=== PATIENT | female | born 1940 | race American Indian/Alaskan Native ===

== ENCOUNTER 2019-09-01 11:53 | Emergency (ER) | payer MEDICARE, OTHER ==
[~2019-09-01] VITALS: Ht 162.6 cm; Wt 72.6 kg
[~2019-09-01 11:53] MED LIST: ALPR.25 PO; AMLO10 PO; AMLO5; ASPI325; ASPI81CH PO; ATEN100; ATEN25 PO; ATEN50 PO; DOXY100 PO; ENOX40I SC; ESCI10 PO; FURO40 PO; HYDACE5 PO; Hytrin2 MG PO; IBUP600 PO; LORA1 PO; LOSA25 PO; LOSHYD100 PO; OMEP20ER; OXCA300; POTCHL20ER PO; PROACE100 PO; Percocet 5-3251 EACH PO; SIMV20 PO; VALS80; Zocor20 MG PO
[2019-09-01 13:12] LABS: BASOPHILS ABSOLUTE AUTO 0.05 K/mm3 (0.00-0.23); BASOPHILS PERCENT AUTO 0 % (0-2); EOSINOPHILS ABSOLUTE AUTO 0.02 K/mm3 (0.00-0.68); EOSINOPHILS PERCENT AUTO 0 % (0-6); Hematocrit 47.4 % (33.0-51.0); Hemoglobin 14.8 g/dL (11.5-16.0); IMMATURE GRAN ABSOLUTE AUTO 0.04 K/mm3 (0.00-0.10); IMMATURE GRAN PERCENT AUTO 0 % (0-1); LYMPHOCYTES ABSOLUTE AUTO 1.63 K/mm3 (0.84-5.20); LYMPHOCYTES PERCENT AUTO 15 % (21-46); MONOCYTES ABSOLUTE AUTO 1.34 K/mm3 (0.16-1.47); MONOCYTES PERCENT AUTO 12 % (4-13); Mean Corpuscular HGB 28.5 pg (26.0-34.0); Mean Corpuscular HGB Conc 31.2 g/dL (31.5-36.5); Mean Corpuscular Volume 91 fL (80-100); Mean Platelet Volume 10.6 fL (9.1-12.4); NEUTROPHILS ABSOLUTE AUTO 8.18 K/mm3 (1.96-9.15); NEUTROPHILS PERCENT AUTO 73 % (41-73); Platelet Count 345 K/mm3 (150-400); RDW Coefficient Variation 16.3 % (11.7-14.2); RDW Standard Deviation 53.9 fL (35.1-46.3); White Blood Cell Count 11.26 K/mm3 (4.00-11.30)
[2019-09-01 13:30] LABS: International Normalized Ratio 1.03; Prothrombin Time Results 10.9 Sec (9.7-11.5)
[2019-09-01 13:32] LABS: Bun/Creatinine Ratio 15.5 (12.0-20.0); Calcium, Blood 9.6 mg/dL (8.5-10.1); Creatinine, Blood 1.03 mg/dL (0.40-1.00); Potassium, Blood 4.6 mmol/L (3.5-5.5); Troponin I 0.083 ng/mL (0.000-0.040)
[2019-09-01 13:45] LABS: Creatine Kinase MB 3.4 ng/mL (0.0-3.6); Creatine Kinase MB Index 1.5 (0.0-4.0)
[2019-09-01 15:03] LABS: Source, Urine Catheter
[2019-09-01 15:06] LABS: Blood, Urine 2+ (Neg); Glucose Qualitative, Urine Neg (Neg); Ketones, Urine 2+ (Neg); Leukocyte Esterase, Urine 1+ (Neg); Nitrite, Urine Neg (Neg); Protein, Urine 3+ (Neg); Specific Gravity, Urine 1.025 (1.003-1.022); Urobilinogen, Urine 2+ (Normal)
[2019-09-01 15:28] LABS: Bilirubin, Urine 1+ (Neg)
[2019-09-01] MEDS ORDERED: Hydrocodone-Ap1 EA26 PO (15:29)
[2019-09-01 15:32] LABS: Appearance, Urine Hazy (Clear); Color, Urine Amber (P-Yellow)
[2019-09-01 15:37] LABS: Bacteria Many /hpf; Mucus Light (0-Heavy); Squamous Epithelial Cells Few /hpf (Few)
[2019-09-01 15:38] LABS: Granular Casts 0-2 /lpf (0)
[2019-09-01] MEDS ORDERED: Bactrim Ds Tab1 EACH PO (16:17)
== END 2019-09-01 16:41 | disposition home or self-care (01) ==
LOC: ER 11:53
PROVIDERS: Emergency Medicine
DX: N39.0 Urinary tract infection, site not specified (principal); F42.4 Excoriation (skin-picking) disorder; I47.1 Supraventricular tachycardia; R41.82 Altered mental status, unspecified; I10 Essential (primary) hypertension; E11.9 Type 2 diabetes mellitus without complications; E78.5 Hyperlipidemia, unspecified; F32.9 Major depressive disorder, single episode, unspecified; F41.0 Panic disorder [episodic paroxysmal anxiety]; Z88.8 Allergy status to other drugs, medicaments and biological substances; Z79.899 Other long term (current) drug therapy; Z79.82 Long term (current) use of aspirin
CPT/HCPCS: 71046; 72100; 72220; 73030; 80048; 81001; 82550; 82553; 84484; 85025; 85610; 85730; 87086; 93005; 93010; 96361; 96365; 96375; 99284-25; J0696; J2405; J3010; J7030; P9612

== ENCOUNTER 2019-10-25 14:13 | Emergency (ER) | payer MEDICARE, OTHER ==
[~2019-10-25] VITALS: Ht 157.5 cm; Wt 68.0 kg
[~2019-10-25 14:13] MED LIST changes: +Bactrim Ds Tab1 EACH PO; +Hydrocodone-Ap1 EA26 PO
[2019-10-25] MEDS ORDERED: TYLECOD3 PO (16:16)
== END 2019-10-25 18:28 | disposition home or self-care (01) ==
LOC: ER 14:13
DX: S80.212A Abrasion, left knee, initial encounter (principal); T14.8XXA Other injury of unspecified body region, initial encounter; M25.552 Pain in left hip; M54.5 Low back pain; M25.512 Pain in left shoulder; I10 Essential (primary) hypertension; M19.90 Unspecified osteoarthritis, unspecified site; Z88.8 Allergy status to other drugs, medicaments and biological substances; Z79.82 Long term (current) use of aspirin; Z79.899 Other long term (current) drug therapy; E11.9 Type 2 diabetes mellitus without complications; F41.0 Panic disorder [episodic paroxysmal anxiety]; F32.9 Major depressive disorder, single episode, unspecified; W19.XXXA Unspecified fall, initial encounter
CPT/HCPCS: 72100; 72170; 73030; 73562-LT; 93005; 93010; 99284-25

== ENCOUNTER 2019-11-18 16:22 | Emergency (ER) | payer MEDICARE, OTHER ==
[~2019-11-18] VITALS: Ht 157.5 cm; Wt 68.0 kg
[~2019-11-18 16:22] MED LIST changes: +TYLECOD3 PO
[2019-11-18 19:15] LABS: BASOPHILS ABSOLUTE AUTO 0.04 K/mm3 (0.00-0.23); BASOPHILS PERCENT AUTO 0 % (0-2); EOSINOPHILS ABSOLUTE AUTO 0.04 K/mm3 (0.00-0.68); EOSINOPHILS PERCENT AUTO 0 % (0-6); Hematocrit 44.1 % (33.0-51.0); Hemoglobin 14.6 g/dL (11.5-16.0); IMMATURE GRAN ABSOLUTE AUTO 0.04 K/mm3 (0.00-0.10); IMMATURE GRAN PERCENT AUTO 0 % (0-1); LYMPHOCYTES ABSOLUTE AUTO 1.45 K/mm3 (0.84-5.20); LYMPHOCYTES PERCENT AUTO 14 % (21-46); MONOCYTES ABSOLUTE AUTO 1.26 K/mm3 (0.16-1.47); MONOCYTES PERCENT AUTO 12 % (4-13); Mean Corpuscular HGB 29.5 pg (26.0-34.0); Mean Corpuscular HGB Conc 33.1 g/dL (31.5-36.5); Mean Corpuscular Volume 89 fL (80-100); Mean Platelet Volume 9.5 fL (9.1-12.4); NEUTROPHILS ABSOLUTE AUTO 7.57 K/mm3 (1.96-9.15); NEUTROPHILS PERCENT AUTO 73 % (41-73); Platelet Count 485 K/mm3 (150-400); RDW Coefficient Variation 16.3 % (11.7-14.2); RDW Standard Deviation 52.6 fL (35.1-46.3); Red Blood Cell Count 4.95 M/mm3 (3.80-5.20)
[2019-11-18 19:33] LABS: Alanine Aminotransfer (ALT/SGP 18 U/L (12-78); Albumin, Blood 2.9 g/dL (3.4-5.0); Albumin/Globulin Ratio 0.7 (0.8-1.8); Alk Phos 70 U/L (50-136); Anion Gap 6 mmol/L (6-16); Aspartate Aminotrans (AST/SGOT 20 U/L (12-37); Bilirubin, Total 0.3 mg/dL (0.1-1.0); Blood Urea Nitrogen 8 mg/dL (8-24); Bun/Creatinine Ratio 14.7 (12.0-20.0); CO2, Blood 34 mmol/L (21-32); Calcium, Blood 9.7 mg/dL (8.5-10.1); Chloride, Blood 102 mmol/L (98-108); Creatinine, Blood 0.54 mg/dL (0.40-1.00); Glomerular Filtration Rate >60 (60-); Glucose, Blood 114 mg/dL (70-99); Potassium, Blood 3.1 mmol/L (3.5-5.5); Sodium, Blood 142 mmol/L (136-145); Total Protein, Blood 6.9 g/dL (6.4-8.2)
== END 2019-11-18 21:02 | disposition home or self-care (01) ==
LOC: ER 16:22
PROVIDERS: Emergency Medicine
DX: R19.7 Diarrhea, unspecified (principal); E87.6 Hypokalemia; I10 Essential (primary) hypertension; E11.9 Type 2 diabetes mellitus without complications; E78.5 Hyperlipidemia, unspecified; F41.0 Panic disorder [episodic paroxysmal anxiety]; F32.9 Major depressive disorder, single episode, unspecified; Z88.8 Allergy status to other drugs, medicaments and biological substances
CPT/HCPCS: 80053; 85025; 96361; 96374; 99284-25; A9270-GY; J2405; J7030

== ENCOUNTER 2019-11-20 17:01 | Emergency (ER) | payer MEDICARE, OTHER ==
[~2019-11-20] VITALS: Ht 157.5 cm; Wt 68.0 kg
[2019-11-20 18:40] LABS: BASOPHILS ABSOLUTE AUTO 0.06 K/mm3 (0.00-0.23); BASOPHILS PERCENT AUTO 0 % (0-2); EOSINOPHILS ABSOLUTE AUTO 0.02 K/mm3 (0.00-0.68); EOSINOPHILS PERCENT AUTO 0 % (0-6); Hemoglobin 14.6 g/dL (11.5-16.0); IMMATURE GRAN ABSOLUTE AUTO 0.06 K/mm3 (0.00-0.10); IMMATURE GRAN PERCENT AUTO 0 % (0-1); LYMPHOCYTES ABSOLUTE AUTO 1.62 K/mm3 (0.84-5.20); LYMPHOCYTES PERCENT AUTO 11 % (21-46); MONOCYTES ABSOLUTE AUTO 1.26 K/mm3 (0.16-1.47); MONOCYTES PERCENT AUTO 9 % (4-13); Mean Corpuscular HGB 29.7 pg (26.0-34.0); Mean Corpuscular HGB Conc 33.2 g/dL (31.5-36.5); Mean Corpuscular Volume 90 fL (80-100); Mean Platelet Volume 9.8 fL (9.1-12.4); NEUTROPHILS ABSOLUTE AUTO 11.14 K/mm3 (1.96-9.15); NEUTROPHILS PERCENT AUTO 79 % (41-73); Platelet Count 503 K/mm3 (150-400); RDW Coefficient Variation 16.4 % (11.7-14.2); RDW Standard Deviation 53.9 fL (35.1-46.3); Red Blood Cell Count 4.91 M/mm3 (3.80-5.20); White Blood Cell Count 14.16 K/mm3 (4.00-11.30)
[2019-11-20 19:15] LABS: Troponin I 0.026 ng/mL (0.000-0.040)
[2019-11-20 19:16] LABS: Albumin, Blood 3.1 g/dL (3.4-5.0); Albumin/Globulin Ratio 0.8 (0.8-1.8); Alk Phos 75 U/L (50-136); Anion Gap 6 mmol/L (6-16); Aspartate Aminotrans (AST/SGOT 26 U/L (12-37); Bilirubin, Total 0.4 mg/dL (0.1-1.0); Blood Urea Nitrogen 9 mg/dL (8-24); Bun/Creatinine Ratio 13.8 (12.0-20.0); CO2, Blood 36 mmol/L (21-32); Calcium, Blood 9.8 mg/dL (8.5-10.1); Chloride, Blood 99 mmol/L (98-108); Creatinine, Blood 0.65 mg/dL (0.40-1.00); Globulin, Blood 3.9 g/dL (2.2-4.0); Glomerular Filtration Rate >60 (60-); Glucose, Blood 112 mg/dL (70-99); Potassium, Blood 2.7 mmol/L (3.5-5.5); Sodium, Blood 141 mmol/L (136-145)
[2019-11-20 19:31] LABS: Alanine Aminotransfer (ALT/SGP 23 U/L (12-78)
== END 2019-11-20 21:09 | disposition home or self-care (01) ==
LOC: ER 17:01
PROVIDERS: Emergency Medicine
DX: F41.9 Anxiety disorder, unspecified (principal); R07.9 Chest pain, unspecified; Z88.8 Allergy status to other drugs, medicaments and biological substances
CPT/HCPCS: 36415; 71046; 80053; 84484; 85025; 93005; 93010; 99284-25

== ENCOUNTER 2019-11-24 16:29 | Inpatient (IN) | payer MEDICARE, OTHER ==
[~2019-11-24] VITALS: Ht 157.5 cm; Wt 56.6 kg
[2019-11-24] MEDS ORDERED: OMEP20ER PO (17:08)
[2019-11-24] MEDS ORDERED: LOSA50 PO (17:09)
[2019-11-24] MEDS ORDERED: Norco 7.5-3251 EACH PO (17:09)
[2019-11-24] MEDS ORDERED: POTA10T PO (17:09)
[2019-11-24] MEDS ORDERED: NORVASC10 MG PO (17:09)
[2019-11-24] MEDS ORDERED: FURO40 PO (17:10)
[2019-11-24] MEDS ORDERED: ESCI10 PO (17:10)
[2019-11-24] MEDS ORDERED: Aspir 8181 MG PO (17:10)
[2019-11-24] MEDS ORDERED: ATEN100 PO (17:10)
[2019-11-24] MEDS ORDERED: ZOCOR20 MG PO (17:11)
[2019-11-24 17:38] LABS: BASOPHILS ABSOLUTE AUTO 0.06 K/mm3 (0.00-0.23); BASOPHILS PERCENT AUTO 1 % (0-2); EOSINOPHILS ABSOLUTE AUTO 0.05 K/mm3 (0.00-0.68); EOSINOPHILS PERCENT AUTO 1 % (0-6); Hematocrit 43.2 % (33.0-51.0); Hemoglobin 13.8 g/dL (11.5-16.0); IMMATURE GRAN ABSOLUTE AUTO 0.05 K/mm3 (0.00-0.10); IMMATURE GRAN PERCENT AUTO 1 % (0-1); LYMPHOCYTES ABSOLUTE AUTO 1.76 K/mm3 (0.84-5.20); LYMPHOCYTES PERCENT AUTO 16 % (21-46); MONOCYTES ABSOLUTE AUTO 1.44 K/mm3 (0.16-1.47); MONOCYTES PERCENT AUTO 13 % (4-13); Mean Corpuscular HGB 29.2 pg (26.0-34.0); Mean Corpuscular HGB Conc 31.9 g/dL (31.5-36.5); Mean Corpuscular Volume 92 fL (80-100); Mean Platelet Volume 9.7 fL (9.1-12.4); NEUTROPHILS ABSOLUTE AUTO 7.41 K/mm3 (1.96-9.15); NEUTROPHILS PERCENT AUTO 69 % (41-73); Platelet Count 420 K/mm3 (150-400); RDW Coefficient Variation 17.1 % (11.7-14.2); RDW Standard Deviation 56.9 fL (35.1-46.3); Red Blood Cell Count 4.72 M/mm3 (3.80-5.20); White Blood Cell Count 10.77 K/mm3 (4.00-11.30)
[2019-11-24 17:54] LABS: International Normalized Ratio 0.96; Prothrombin Time Results 10.3 Sec (9.7-11.5)
[2019-11-24 17:58] LABS: Alanine Aminotransfer (ALT/SGP 21 U/L (12-78); Albumin, Blood 2.9 g/dL (3.4-5.0); Albumin/Globulin Ratio 0.8 (0.8-1.8); Alk Phos 78 U/L (50-136); Anion Gap 4 mmol/L (6-16); Aspartate Aminotrans (AST/SGOT 24 U/L (12-37); Bilirubin, Total 0.2 mg/dL (0.1-1.0); Blood Urea Nitrogen 12 mg/dL (8-24); Bun/Creatinine Ratio 12.8 (12.0-20.0); CO2, Blood 33 mmol/L (21-32); Calcium, Blood 9.5 mg/dL (8.5-10.1); Chloride, Blood 103 mmol/L (98-108); Creatinine, Blood 0.94 mg/dL (0.40-1.00); Globulin, Blood 3.7 g/dL (2.2-4.0); Glomerular Filtration Rate >60 (60-); Glucose, Blood 131 mg/dL (70-99); Potassium, Blood 3.7 mmol/L (3.5-5.5); Sodium, Blood 140 mmol/L (136-145); Total Protein, Blood 6.6 g/dL (6.4-8.2)
[2019-11-24 18:37] LABS: Source, Urine Catheter
[2019-11-24 18:43] LABS: Appearance, Urine Clear (Clear); Bilirubin, Urine Neg (Neg); Blood, Urine Neg (Neg); Color, Urine Yellow (P-Yellow); Glucose Qualitative, Urine Neg (Neg); Ketones, Urine 2+ (Neg); Leukocyte Esterase, Urine Neg (Neg); Nitrite, Urine Neg (Neg); Protein, Urine 2+ (Neg); Urobilinogen, Urine NORM (Normal)
[2019-11-24 18:53] LABS: Bacteria Mod /hpf; Mucus Light (0-Heavy); Red Blood Cells, Urine 0-2 /hpf (0-2); Squamous Epithelial Cells Rare /hpf (Few); White Blood Cells, Urine 0-2 /hpf (0-5)
[2019-11-24 21:09] LABS: CPK Creatine Kinase 67 U/L (26-193); Troponin I <0.015 ng/mL (0.000-0.040)
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
[2019-11-25 00:58] LABS: Adenovirus Not Detected (NOT DETECT); Bordetella pertussis Not Detected (NOT DETECT); Chlamydophila pneumoniae Not Detected (NOT DETECT); Coronavirus 229E Not Detected (NOT DETECT); Coronavirus HKU1 Not Detected (NOT DETECT); Coronavirus NL63 Not Detected (NOT DETECT); Coronavirus OC43 Not Detected (NOT DETECT); Human Metapneumovirus Not Detected (NOT DETECT); Human Rhinovirus/Enterovirus Not Detected (NOT DETECT); Influenza A Not Detected (NOT DETECT); Influenza A/2009-H1 Not Detected (NOT DETECT); Influenza A/H1 Not Detected (NOT DETECT); Influenza A/H3 Not Detected (NOT DETECT); Influenza B Not Detected (NOT DETECT); Mycoplasma pneumoniae Not Detected (NOT DETECT); Parainfluenza Virus 1 Not Detected (NOT DETECT); Parainfluenza Virus 2 Not Detected (NOT DETECT); Parainfluenza Virus 3 Not Detected (NOT DETECT); Parainfluenza Virus 4 Not Detected (NOT DETECT); Respiratory Syncytial Virus Not Detected (NOT DETECT)
[2019-11-25 03:36] LABS: Hematocrit 37.4 % (33.0-51.0); Hemoglobin 11.9 g/dL (11.5-16.0); Mean Corpuscular HGB 29.5 pg (26.0-34.0); Mean Corpuscular HGB Conc 31.8 g/dL (31.5-36.5); Mean Corpuscular Volume 93 fL (80-100); Mean Platelet Volume 10.2 fL (9.1-12.4); Platelet Count 413 K/mm3 (150-400); RDW Coefficient Variation 17.2 % (11.7-14.2); RDW Standard Deviation 58.6 fL (35.1-46.3); Red Blood Cell Count 4.04 M/mm3 (3.80-5.20)
[2019-11-25 04:05] LABS: Alanine Aminotransfer (ALT/SGP 14 U/L (12-78); Albumin, Blood 2.3 g/dL (3.4-5.0); Albumin/Globulin Ratio 0.7 (0.8-1.8); Alk Phos 61 U/L (50-136); Anion Gap 6 mmol/L (6-16); Aspartate Aminotrans (AST/SGOT 19 U/L (12-37); Bilirubin, Total 0.3 mg/dL (0.1-1.0); Blood Urea Nitrogen 7 mg/dL (8-24); Bun/Creatinine Ratio 8.8 (12.0-20.0); CO2, Blood 34 mmol/L (21-32); CPK Creatine Kinase 39 U/L (26-193); Calcium, Blood 8.6 mg/dL (8.5-10.1); Chloride, Blood 104 mmol/L (98-108); Globulin, Blood 3.2 g/dL (2.2-4.0); Glomerular Filtration Rate >60 (60-); Glucose, Blood 93 mg/dL (70-99); Potassium, Blood 3.2 mmol/L (3.5-5.5); Sodium, Blood 144 mmol/L (136-145); Total Protein, Blood 5.5 g/dL (6.4-8.2); Troponin I 0.027 ng/mL (0.000-0.040)
--- NOTE | 2019-11-25 06:03 | NUR ---
PT RESTS QUIETLY FOLLOWING ARRIVAL TO UNIT, VITALS SIGNS MAINTAIN STABLE, PT VOIDS WELL IN BEDPAN X 1, PLAN TO GET UP TO BSC WITH NEXT NEED TO VOID, HIGH FALL RISK PRECAUTIONS INITIATED. PT HAS USED CALL LIGHT APPROPRIATELY THIS SHIFT ALTHOUGH WAS NOTED TO CALL OUT FOR ASSISTANCE INTERMITTENTLY, SHE STATED THAT SHE WAS UNABLE TO LOCATE HER CALL LIGHT AT THOSE TIMES, CALL LIGHT WAS NOTED WITHIN REACH BUT LIGHTS HAD BEEN OFF IN ROOM, PT WAS SHOWN SMALL LIGHT LAWN CARE PROFESSIONAL LIGHT TO ASSIST IN LOCATION. ASSESSMENT HAS OTHERWISE REMAINED UNCHANGED FROM ARRIVAL TO ICU.
--- NOTE | 2019-11-25 08:16 | NUR ---
REMOVAL OF PIV 20G PIV TO RFA VERY TENDER WITH FLUSH, DIFFICULT TO FLUSH. REMOVED PIV WITHOUT EVENT, CATHETER INTACT UPON REMOVAL.
--- NOTE | 2019-11-25 10:20 | NUR ---
DR PINEDA ROUNDS DR PINEDA ROUNDED, UPDATED ON PT STATUS. NO CHANGE TO PLAN OF CARE AT THIS TIME. WILL CONT TO MONITOR PT.
--- NOTE | 2019-11-25 11:22 | NUR ---
ECHOCARDIOGRAM COMPLETED
--- NOTE | 2019-11-25 11:33 | NUR ---
SHIFT UPDATE PT RESTING IN BED. PT INTERMITTENT WITH APPROPRIATE CALL LIGHT USE. PT WITH 2 INCONTINENT LOOSE STOOLS, SAMPLE SENT TO LAB PER ORDER FOR GI PANEL. PARTIAL BB GIVEN. VSS, SEE FLOWSHEET. RHYTHM CONTINUES TO SHOW NSR. PT REMAINS ON 2LPM VIA NC, BREATHING E/U AT REST. 40 MEQ KCL INFUSED PER ORDERS. BED IN LOWEST POSITION, SIDE RAILS RAISED. CALL LIGHT IN REACH. WILL CONT TO MONITOR PT.
[2019-11-25 11:41] LABS: Adenovirus F 40/41 Not Detected (NOT DETECT); Astrovirus Not Detected (NOT DETECT); Campylobacter Sp Not Detected (NOT DETECT); Cryptosporidium Not Detected (NOT DETECT); Cyclospora Cayetanensis Not Detected (NOT DETECT); E. Coli O157 Not Detected (NOT DETECT); Entamoeba Histolytica Not Detected (NOT DETECT); Enteroaggregative E. coli-EAEC Not Detected (NOT DETECT); Enteropathogenic E. coli-EPEC Not Detected (NOT DETECT); Enterotoxigenic E. coli-ETEC Not Detected (NOT DETECT); Giardia Lamblia Not Detected (NOT DETECT); Norovirus GI/GII Not Detected (NOT DETECT); Plesiomonas Shigelloides Not Detected (NOT DETECT); Rotavirus A Not Detected (NOT DETECT); Salmonella Sp Not Detected (NOT DETECT); Shiga Toxin-prod E. coli-STEC Not Detected (NOT DETECT); Shigella/Enteroin E. coli-EIEC Not Detected (NOT DETECT); Vibrio Cholerae Not Detected (NOT DETECT); Vibrio Sp Not Detected (NOT DETECT); Yersinia Enterocolitica Not Detected (NOT DETECT)
[2019-11-25 11:42] LABS: Sapovirus Not Detected (NOT DETECT)
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
--- NOTE | 2019-11-25 18:09 | NUR ---
SHIFT SUMMARY NO ACUTE CHANGES THROUGH SHIFT. VSS, SEE FLOWSHEET. PT USING CALL LIGHT INTERMITTENTLY, YELLING OUT OCCASIONALLY FOR HELP. PT REQUIRING MAX ASSIST WITH BEDPAN, REQUESTING BEDPAN FREQUENTLY. PHYSICAL THERAPY WORKED WITH PT. PET CARE ASSOCIATE REFERRAL PLACED FOR LIVING ARRANGEMENTS. WILL CONT TO MONITOR PT. BED IN LOWEST POSITION, SIDE RAILS RAISED. CALL LIGHT IN REACH.
[2019-11-25] MEDS ORDERED: Hytrin2 MG PO (22:21)
--- NOTE | 2019-11-26 05:54 | NUR ---
PT RESTS QUIETLY THROUGHOUT SHIFT, HAS USED CALL LIGHT WELL CALLING OUT FOR HELP AT WHICH TIMES SHE STATES THAT SHE WAS UNABLE TO LOCATE CALL LIGHT IN BEDDING. SHE HAS REMAINED IN SINUS RHYTHM WITH RATE IN THE 60-70S THIS AM, PRESSURES MAINTAING, NO EDEMA IS NOTED, SKIN REMAINS PWD WITH BRISK CAP REFILL. SATS MAINTAIN WITH OXYGEN AT 2 L/MIN VIA NC, RESP RATE REMAINS WNL, MILD INCREASED WORK OF BREATHING IS NOTED WITH EXERTION OF REPOSITIONING AND TURNING TO GET ON AND OFF BEDPAN. SHE HAS BEEN NOTED TO BE PICKING AT SCABS TO LEFT UPPER ARM, DISCUSSED INFECTION RISK WITH PT AND STRONGLY ENCOURAGED HER TO NOT PICK AND SHE STATED "I WAKE UP AND NOTICE THAT I'M DOING IT" OTHERWISE NO ACUTE CHANGES THIS SHIFT.
--- NOTE | 2019-11-26 08:31 | NUR ---
CARE ASSUMED ASSESSMENT COMPLETED, PT ALERT, ORIENTED TO ALL BUT DATE, DENIES NEEDS AT THIS TIME, REPORTS CHRONIC LEFT ARM PAIN BUT DENIES NEED FOR INTERVENTION. BP ELEVATED, WILL MEDICATE PER MAR, OTHER VSS, HR 70'S-80'S SINUS. PT REPORTS OCCASIONAL DRY COUGH, NONE NOTED AT THIS TIME. SPO2 >90% ON 2L/NC, PT DENIES SOB AT REST. SKIN TEARS TO RIGHT ARM WITH SMALL AMOUNT OF SEROSANG DRAINAGE, WILL PROVIDE WOUND CARE. PT STATES SHE IS NOT READY FOR BREAKFAST YET, RESTING IN BED, DENIES NEEDS.
--- NOTE | 2019-11-26 10:48 | NUR ---
UPDATE PT HAS BEEN SLEEPING BETWEEN CARES, VOIDING IN BEDPAN WITHOUT DIFFICULTY, HR 70'S SINUS. SWALLOW EVAL COMPLETED, DIET CHANGED TO SOFT/BITE SIZED D/T PT'S LACK OF TEETH, NO SWALLOWING DIFICULTIES IDENTIFIED BY S/T. PT DENIES C/O, CONTINUES TO REST. MED STATUS NO TELE.
--- NOTE | 2019-11-26 14:10 | NUR ---
UPDATE PT PARTICIPATED WITH P/T, WAS WEAK AND UNABLE TO GET OOB, SAT AT BEDSIDE WITH ASSIST. PT CONTINUES TO MOVE SELF IN BED WITH MINIMAL ASSIST, STATES SHE FEELS WEAK. VSS, TELE DC'D PER ORDERS. BEDBATH AND SHAMPOO COMPLETED, PT CONTINUES TO USE BEDPAN WITHOUT DIFFICULTY, URINE CLEAR YELLOW. HR REMAINS 70'S, OCCASIONAL DRY COUGH NOTED.
--- NOTE | 2019-11-26 15:02 | NUR ---
WOUND CARE SKIN TEARS TO LEFT ARM CLEANSED WITH WOUND CLEANSER, NEW PICTURES TAKEN. DRESSED WITH ABX OINTMENT, TELFA/OPSITE, AND BANDAIDS. PT TOLERATED WELL. PT NOW RESTING IN BED, DENIES NEEDS.
--- NOTE | 2019-11-26 18:36 | NUR ---
END OF SHIFT PT HAD AN UNEVENTFUL DAY, VSS, PT AFEBRILE T/O SHIFT, HR 70'S, BP NORMOTENSIVE AFTER SCHEDULED MEDS. LS CLEARED AFTER LASIX, PT DENIES SOB. ATTEMPTED TO WEAN OFF OF SUPPLEMENTAL O2, UNSUCCESSFUL SPO2 DECREASED TO MID 80'S ON RA. MEDICATED X1 WITH TYLENOL FOR CHRONIC NECK AND SHOULDER PAIN WITH GOOD RESULTS. PT ALERT, ORIENTED TO SELF, SITUATION, AND PLCE, APPROPRIATE AND COOPERATIVE, USING CALL LIGHT. USED BEDPAN TO VOID, NO BM THIS SHIFT. WOUND CARE COMPLETED, DRESSINGS REMAIN CDI. PT FED SELF INDEPENDENTLY, APPETITE GOOD. PT REMAINS WEAK, PAINFUL ON LEFT SIDE, MOVES SELF IN BED FAIRLY WELL. WILL CONTINUE WITH PT/OT, VICE PRESIDENT OF SOFTWARE ENGINEERING CONSULT ORDERED FOR POST ACUTE CARE PLANNING. UPDATE GIVEN TO PT'S CAREGIVER, REPORT TO ONCOMING SHIFT.
--- NOTE | 2019-11-26 19:00 | NUR ---
ASSUMED CARE OF PT, BEDSIDE REPORT RECEIVED. PT DENIES NEEDS AT THIS TIME. RESTING QUIETLY RECLINING IN BED. MED NO TELE STATUS NOTED. NO VISIBLE INCREASED WORK OF BREATHING AT THIS TIME, SPEAKING IN FULL SENTENCES. PT IS ASSISTED OFF OF THE BEDPAN DURING BEDSIDE REPORT. DRESSINGS NOW IN PLACE TO LEFT UPPER ARM WOUNDS NOTED TO BE DRY AND INTACT.
--- NOTE | 2019-11-26 19:04 | NUR ---
Initial spiritual care note: Mrs. Burris feels well loved and supported by her [facility] [place] community. has provided blessing at bedside. She reports a strong vanda that sustains her and supportive friends. No concerns presented. She feels she is geting better. Prayer for continued healing provided. I will remain available.
--- NOTE | 2019-11-27 01:15 | NUR ---
ASSUMED CARE OF PT. PT SLEEPING.
[2019-11-27 03:15] LABS: BASOPHILS ABSOLUTE AUTO 0.04 K/mm3 (0.00-0.23); BASOPHILS PERCENT AUTO 1 % (0-2); EOSINOPHILS ABSOLUTE AUTO 0.15 K/mm3 (0.00-0.68); EOSINOPHILS PERCENT AUTO 2 % (0-6); IMMATURE GRAN ABSOLUTE AUTO 0.02 K/mm3 (0.00-0.10); IMMATURE GRAN PERCENT AUTO 0 % (0-1); LYMPHOCYTES ABSOLUTE AUTO 1.23 K/mm3 (0.84-5.20); LYMPHOCYTES PERCENT AUTO 16 % (21-46); MONOCYTES ABSOLUTE AUTO 1.15 K/mm3 (0.16-1.47); MONOCYTES PERCENT AUTO 15 % (4-13); Mean Corpuscular HGB 29.3 pg (26.0-34.0); Mean Corpuscular HGB Conc 31.6 g/dL (31.5-36.5); Mean Corpuscular Volume 93 fL (80-100); Mean Platelet Volume 9.9 fL (9.1-12.4); NEUTROPHILS ABSOLUTE AUTO 5.08 K/mm3 (1.96-9.15); NEUTROPHILS PERCENT AUTO 66 % (41-73); Platelet Count 362 K/mm3 (150-400); RDW Coefficient Variation 16.8 % (11.7-14.2); White Blood Cell Count 7.67 K/mm3 (4.00-11.30)
[2019-11-27 03:30] LABS: Anion Gap 6 mmol/L (6-16); Blood Urea Nitrogen 12 mg/dL (8-24); Bun/Creatinine Ratio 13.3 (12.0-20.0); CO2, Blood 33 mmol/L (21-32); Calcium, Blood 8.8 mg/dL (8.5-10.1); Chloride, Blood 106 mmol/L (98-108); Glomerular Filtration Rate >60 (60-); Glucose, Blood 107 mg/dL (70-99); Magnesium, Blood 1.9 mg/dL (1.6-2.4); Potassium, Blood 3.7 mmol/L (3.5-5.5); Sodium, Blood 145 mmol/L (136-145)
--- NOTE | 2019-11-27 06:25 | NUR ---
SHIFT SUMMARY PT RESTING QUIETLY. TURNING AND MOVING SELF IN BED. VSS. NO ACUTE CHANGE. REPORT TO ON COMING NURSE
--- NOTE | 2019-11-27 11:52 | NUR ---
REASSESSMENT: PT HAS BEEN RESTING IN BED THROUGHOUT THE MORNING. SHE WAKES EASILY, IS ONLY ON 2L/NC AND STATES SHE FEELS LIKE HER BREATHING IS DOING BETTER. DR. PINEDA SAID PT IS OK TO DC TO A SNF. MACHELLE, [employer] WORK[employer] NOTIFIED AND IS WORKING ON IT. LUNGS ARE CLEAR, DIM IN THE BASES. GOOD APPETITE. VOIDING IN THE BEDPAN. NO REQUESTS FROM PT AT THIS TIME. CONTINUING TO MONITOR.
[2019-11-27] MEDS ORDERED: ROBITUSSIN DM PO (13:48)
[2019-11-27] MEDS ORDERED: Vsl#3 Capsule1 EACH PO (13:50)
[2019-11-27] MEDS ORDERED: OMEP20ER PO (13:51)
[2019-11-27] MEDS ORDERED: LEVFLO500 PO (13:53)
--- NOTE | 2019-11-27 15:05 | NUR ---
DISCHARGE: PT TRANSFERRED TO [facility]IA [facility]. ALL BELONGINGS SENT WITH PT. PT'S CAREGIVER MIKE NOTIFIED OF TRANSFER. REPORT CALLED TO LAKESHA PATEL.
== END 2019-11-27 14:45 | DRG 202 ==
LOC: ER 16:29 → EOR 16:30 → ERHOLD 16:30 → ER 16:30 → ICUE 20:31
PROVIDERS: Emergency Medicine; Internal Medicine; ADMIT Internal Medicine
DX: J20.9 Acute bronchitis, unspecified (principal); E87.2 Acidosis; G93.40 Encephalopathy, unspecified; I48.91 Unspecified atrial fibrillation; F32.9 Major depressive disorder, single episode, unspecified; I10 Essential (primary) hypertension; E87.6 Hypokalemia; E11.9 Type 2 diabetes mellitus without complications; E78.5 Hyperlipidemia, unspecified; E86.0 Dehydration; Z79.82 Long term (current) use of aspirin
CPT/HCPCS: 0097U; 0099U; 36415; 71045; 80048; 80053; 81001; 82550; 83605; 83735; 83880; 84484; 85025; 85027; 85379; 85610; 85730; 87086; 90686; 92610; 93005; 93010; 93306; 96360; 96361; 97110; 97162; 97530; 99285-25; A9270; A9270-GY; C1751; G0008; J1650; J1956; J3480; J7030; J7120; P9612

== ENCOUNTER 2020-01-20 18:29 | Emergency (ER) | payer MEDICARE, OTHER ==
[~2020-01-20] VITALS: Ht 165.1 cm; Wt 70.3 kg
[~2020-01-20 18:29] MED LIST changes: +ATEN100 PO; +Aspir 8181 MG PO; +LEVFLO500 PO; +LOSA50 PO; +NORVASC10 MG PO; +Norco 7.5-3251 EACH PO; +OMEP20ER PO; +POTA10T PO; +ROBITUSSIN DM PO; +Vsl#3 Capsule1 EACH PO; +ZOCOR20 MG PO
== END 2020-01-20 19:18 | disposition home or self-care (01) ==
LOC: ER 18:29
DX: M54.6 Pain in thoracic spine (principal); G89.29 Other chronic pain; Z76.0 Encounter for issue of repeat prescription; I10 Essential (primary) hypertension; E78.5 Hyperlipidemia, unspecified; E11.9 Type 2 diabetes mellitus without complications; F41.0 Panic disorder [episodic paroxysmal anxiety]; F32.9 Major depressive disorder, single episode, unspecified; Z88.8 Allergy status to other drugs, medicaments and biological substances; Z79.899 Other long term (current) drug therapy; Z79.82 Long term (current) use of aspirin
CPT/HCPCS: 99283; A9270

== ENCOUNTER 2020-03-15 07:13 | Inpatient (IN) | payer MEDICARE, OTHER ==
[~2020-03-15] VITALS: Ht 162.6 cm; Wt 62.0 kg
[2020-03-15 07:25] LABS: PCO2 Arterial 57.8 mmHg (35-45); PO2 Arterial 52.3 mmHg (80-100); pH Blood Arterial 7.33 (7.35-7.45)
[2020-03-15 07:35] LABS: BASOPHILS PERCENT AUTO 1 % (0-2); EOSINOPHILS ABSOLUTE AUTO 0.21 K/mm3 (0.00-0.68); EOSINOPHILS PERCENT AUTO 2 % (0-6); Hematocrit 40.7 % (33.0-51.0); Hemoglobin 12.3 g/dL (11.5-16.0); IMMATURE GRAN ABSOLUTE AUTO 0.07 K/mm3 (0.00-0.10); IMMATURE GRAN PERCENT AUTO 1 % (0-1); LYMPHOCYTES ABSOLUTE AUTO 1.19 K/mm3 (0.84-5.20); LYMPHOCYTES PERCENT AUTO 10 % (21-46); MONOCYTES ABSOLUTE AUTO 1.09 K/mm3 (0.16-1.47); MONOCYTES PERCENT AUTO 9 % (4-13); Mean Corpuscular HGB 28.4 pg (26.0-34.0); Mean Corpuscular HGB Conc 30.2 g/dL (31.5-36.5); Mean Corpuscular Volume 94 fL (80-100); Mean Platelet Volume 10.1 fL (9.1-12.4); NEUTROPHILS ABSOLUTE AUTO 9.25 K/mm3 (1.96-9.15); NEUTROPHILS PERCENT AUTO 78 % (41-73); NRBC ABSOLUTE 0.04 K/mm3 (0.00-0.02); NRBC Auto 0.3 /100 WBC (0.0-0.2); Platelet Count 446 K/mm3 (150-400); RDW Coefficient Variation 15.1 % (11.7-14.2); RDW Standard Deviation 51.8 fL (35.1-46.3); Red Blood Cell Count 4.33 M/mm3 (3.80-5.20); White Blood Cell Count 11.91 K/mm3 (4.00-11.30)
[2020-03-15] MEDS ORDERED: POTA10T PO (07:53)
[2020-03-15 07:54] LABS: Alanine Aminotransfer (ALT/SGP 17 U/L (12-78); Albumin, Blood 3.1 g/dL (3.4-5.0); Albumin/Globulin Ratio 0.6 (0.8-1.8); Alk Phos 77 U/L (50-136); Anion Gap 4 mmol/L (6-16); Aspartate Aminotrans (AST/SGOT 20 U/L (12-37); Bilirubin, Total 0.3 mg/dL (0.1-1.0); Blood Urea Nitrogen 27 mg/dL (8-24); Bun/Creatinine Ratio 32.3 (12.0-20.0); CO2, Blood 29 mmol/L (21-32); Calcium, Blood 9.4 mg/dL (8.5-10.1); Chloride, Blood 107 mmol/L (98-108); Creatinine, Blood 0.84 mg/dL (0.40-1.00); Globulin, Blood 5.1 g/dL (2.2-4.0); Glomerular Filtration Rate >60 (60-); Glucose, Blood 112 mg/dL (70-99); Sodium, Blood 140 mmol/L (136-145); Total Protein, Blood 8.2 g/dL (6.4-8.2); Troponin I <0.015 ng/mL (0.000-0.040)
[2020-03-15] MEDS ORDERED: ATEN50 PO (07:54)
[2020-03-15] MEDS ORDERED: AMLO10 PO (07:54)
[2020-03-15] MEDS ORDERED: ZOCOR20 MG PO (07:54)
[2020-03-15] MEDS ORDERED: FURO40 PO (07:55)
[2020-03-15] MEDS ORDERED: ESCI10 PO (07:55)
[2020-03-15] MEDS ORDERED: Aspir 8181 MG PO (07:55)
[2020-03-15] MEDS ORDERED: Norco 7.5-3251 EACH PO (12:25)
--- NOTE | 2020-03-15 13:43 | NUR ---
A&Ox4. SOBIA. SWETA SOUNDS COARSE THROUGHOUT ALL EVANS. PT ON BIPAP. SATs DROP RAPIDLY WHEN TRANSFERING TO [facility]. HEART RHYTHMN SINUS @ 77 BPM. DENIES CP. PULSES STRONG. SLIGHT EDEMA IN BILAT LOWER EXTREM. ABD DISTENDED. DENIES PN. BOWEL TONES HEARD IN ALL 4 QUADRANTS. LAST BM THIS MORNING. DENIES ISSUES WITH URINATION. SKIN WARM AND PINK. PT CURRENTLY LYING IN BED TOLERATING BIPAP WELL. SPO2 96% AT THIS TIME. BED IN LOWEST POSITION, RAILS UP, AND CALL LIGHT WITHIN REACH.
--- NOTE | 2020-03-15 19:05 | NUR ---
SHIFT SUMMARY PT ON BIPAP AND IS TOLERATING WELL FOR THE MOST PART. SHE HAD AN INCIDENT WHERE SHE BECAME VERY ANXIOUS AND WANTED IT OFF. TRIED TAKING HER OFF WITH NC @ 6 LPM BUT HER SATs DROPPED FAST TO LOW 80s AND PUT HER BACK ON BIPAP. PT CURRENTLY RESTING IN BED. BED IN LOW POSITION, RAILS UP, AND CALL LIGHT W/IN REACH.
--- NOTE | 2020-03-15 20:00 | NUR ---
ASSUMPTION OF CARE: PT IS A&O. IN SR. HR IN THE 70S, SBP IN THE 120-140S. ON BIPAP. LUNGS ARE CLEAR. IS ABLE TO USE BEDSIDE COMMODE WITH A 1 PERSON ASSIST. HAS CHRONIC L SIDE PAIN FROM A FALL A COUPLE YEARS AGO. IV IN R WRIST, PATENT AND SL. PT IS ABLE TO REPOSITION SELF FOR COMFORT. BED IN LOWEST POSITION, CALL LIGHT IN REACH. WILL CONTINUE TO MONITOR
[2020-03-16 03:54] LABS: BASOPHILS ABSOLUTE AUTO 0.07 K/mm3 (0.00-0.23); BASOPHILS PERCENT AUTO 1 % (0-2); EOSINOPHILS ABSOLUTE AUTO 0.18 K/mm3 (0.00-0.68); EOSINOPHILS PERCENT AUTO 2 % (0-6); Hematocrit 36.7 % (33.0-51.0); Hemoglobin 11.2 g/dL (11.5-16.0); IMMATURE GRAN ABSOLUTE AUTO 0.05 K/mm3 (0.00-0.10); IMMATURE GRAN PERCENT AUTO 1 % (0-1); LYMPHOCYTES ABSOLUTE AUTO 0.87 K/mm3 (0.84-5.20); LYMPHOCYTES PERCENT AUTO 9 % (21-46); MONOCYTES ABSOLUTE AUTO 0.91 K/mm3 (0.16-1.47); MONOCYTES PERCENT AUTO 10 % (4-13); Mean Corpuscular HGB 28.3 pg (26.0-34.0); Mean Corpuscular HGB Conc 30.5 g/dL (31.5-36.5); Mean Corpuscular Volume 93 fL (80-100); Mean Platelet Volume 10.2 fL (9.1-12.4); NEUTROPHILS ABSOLUTE AUTO 7.39 K/mm3 (1.96-9.15); NEUTROPHILS PERCENT AUTO 78 % (41-73); NRBC ABSOLUTE 0.03 K/mm3 (0.00-0.02); NRBC Auto 0.3 /100 WBC (0.0-0.2); Platelet Count 434 K/mm3 (150-400); RDW Coefficient Variation 14.7 % (11.7-14.2); RDW Standard Deviation 49.9 fL (35.1-46.3); Red Blood Cell Count 3.96 M/mm3 (3.80-5.20); White Blood Cell Count 9.47 K/mm3 (4.00-11.30)
[2020-03-16 04:10] LABS: Anion Gap 6 mmol/L (6-16); Blood Urea Nitrogen 17 mg/dL (8-24); CO2, Blood 30 mmol/L (21-32); Chloride, Blood 108 mmol/L (98-108); Creatinine, Blood 0.57 mg/dL (0.40-1.00); Glomerular Filtration Rate >60 (60-); Glucose, Blood 117 mg/dL (70-99); Potassium, Blood 3.5 mmol/L (3.5-5.5); Sodium, Blood 144 mmol/L (136-145)
--- NOTE | 2020-03-16 06:34 | NUR ---
SHIFT SUMMARY: PT SLEPT ON AND OFF T/O SHIFT. SHE WOULD HOLLER OUT WHEN SHE NEEDED HELP EVEN WHEN SHE WAS HOLDING THE CALL LIGHT. ATTEMPTED MULTIPLE TIMES TO REDIRECT PT TO USE CALL LIGHT WITH MINIMAL RESULTS. DURING BED BATH PT WAS PLACED ON NC AND INITIALLY HELD HER SATS WELL. WHEN GETTING HER BACK IN TO BED SHE DESATED IN TO THE 60S. BIPAP WAS PLACED BACK ON HER AND FIO2 WAS TITRATED UP UNTIL SHE RECOVERED. FIO2 CURRENTLY AT 65% AND PT IS TOLERATING WELL. HR AND SBP STAYED STABLE. PT WAS UP TO COMMODE WITH 1 PERSON ASSIST FREQUENTLY. WILL PASS REPORT TO ONCOMING SHIFT
--- NOTE | 2020-03-16 15:58 | NUR ---
PT HAS BEEN OFF OF BIPAP TODAY, PT CURRENTLY ON 12L OF O2 VIA HIGH FLOW NASAL CANNULA, SOB WITH EXERTION. SATS HAS BEEN 93%-95%. PT ALSO WAS SEEN BY SPEECH THERAPIST, Andrew TO START ON PUREE DIET, ASSISTED WITH FEEDINGS, THIN LIQUIDS WITH SPOON, MEDS CRUSHED WITH APPLESAUCE. PT HAS BEEN TOLERATING THE BEDSIDE COMMODE WITHOUT DESATURATING ON O2 LEVELS. PT HAS BEEN RESTING IN BED, CONTINUED ON IV ABO, HRR SINUS TACH ON 90'S AFEBRILE. CALL LIGHTS WITHIN REACH CALLS APPROPRIATELY, WILL MONITOR
--- NOTE | 2020-03-16 23:16 | NUR ---
ASSUMED CARE AT 1900. PT HAS BEEN RESTING IN BED. USES BEDSIDE COMMODE WITH 1 ASSIST. PT ON O2 NC MAINTAINING SAT ABOVE 92%. WCTM.
--- NOTE | 2020-03-17 05:03 | NUR ---
SHIFT SUMMARY PT HAS BEEN A/O X4 DURING THE SHIFT. NEEDS SBA TO TRANSFER TO BEDSIDE COMMODE. PT IS TOLERATING PUREE DIET, VOIDING, AND HAD SMALL BM DURING THE NIGHT. CBG'S HAVE BEEN LOW 100'S - SEE LABS. 02 SAT HAS REMAINED ABOVE 92% ON 11L O2 NC. PT DENIES SOB AT REST; DOES GET SOB WITH EXERTION. PT HAS BEEN RESTING MOST OF THE NIGHT. NO ACUTE CHANGES. ASSISTED WITH ADL'S PRN.
--- NOTE | 2020-03-17 15:33 | NUR ---
PT SLOWLY TITRATED ON O2 THIS AM FROM 11L, NOW PT TOLERATING 6L VIA NASAL CANNULA SATS CURRENTLY AT 97%, STILL HAS SOB WITH EXERTION SATS MAINTAINED ABOVE 90% ALL SHIFT. PT WAS UP IN THE WHEELCHAIR ALL SHIFT FOR MEALS, STILL ON ASPIRATION PRECAUTION PUREED DIET. PT ABLE TO SELF FEED WITHOUT ANY ISSUES. USES BEDSIDE COMMODE SBA. BED AND CHAIR ALARM ON PT ATTEMPTS TO GET UP AND TRANSFER BY HERSELF. CONTINUES ON IV ABO FOR PNA. TAKES TYLENOL FOR LEFT SIDED PAIN GIVEN X2 FOR THE SHIFT WITH EFFECTIVENESS, HRR REMAINED SINUS ON THE 70'S, BP SYSTOLIC ON THE 150'S. DENIES CHEST PAIN/PRESSURE. PT CALLS APPROPRIATELY, [place], ABLE TO MAKE NEEDS KNOWN. WILL MONITOR.
--- NOTE | 2020-03-17 19:30 | NUR ---
ASSUMED CARE NOTE: ASSUMED CARE OF PT AT 1900, RECEVIED REPORT FROM CHAPITO CROWDER. PT IS A/0X3, PT IS ABLE TO FOLLOW DIRECTIONS. PT IS [place]. PT IS ON 6L OF 02 VIA HUMIDIFIED HIGH-FLOW NASAL CANNUAL, WITH SPO2 AT 93% PT IN SINUS RYTHYM WITH HR IN THE 70'S PER MONITOR. PT LEFT SHOULDER IS OZZING SEROUS FLUID FROM WOUND (FROM FALL AT HOME) WOUND CLEANED AND MEPLIEX APPLIED. PT HAS A SCAB ON FORHEAD. PT USES BEDSIDE COMMODE, WITH 1 PERSON ASSISTANCE. PT HAS ATTENDS IN PLACE. BED AT LOWEST LEVEL, CALL LIGHT WITHIN REACH. WILL CONTINUE TO MONITOR PT T/O SHIFT.
[2020-03-18 03:54] LABS: BASOPHILS ABSOLUTE AUTO 0.07 K/mm3 (0.00-0.23); BASOPHILS PERCENT AUTO 1 % (0-2); EOSINOPHILS ABSOLUTE AUTO 0.27 K/mm3 (0.00-0.68); EOSINOPHILS PERCENT AUTO 3 % (0-6); Hematocrit 35.8 % (33.0-51.0); Hemoglobin 11.1 g/dL (11.5-16.0); IMMATURE GRAN ABSOLUTE AUTO 0.04 K/mm3 (0.00-0.10); IMMATURE GRAN PERCENT AUTO 1 % (0-1); LYMPHOCYTES ABSOLUTE AUTO 1.04 K/mm3 (0.84-5.20); LYMPHOCYTES PERCENT AUTO 12 % (21-46); MONOCYTES ABSOLUTE AUTO 0.92 K/mm3 (0.16-1.47); MONOCYTES PERCENT AUTO 10 % (4-13); Mean Corpuscular HGB 28.2 pg (26.0-34.0); Mean Corpuscular Volume 91 fL (80-100); Mean Platelet Volume 9.7 fL (9.1-12.4); NEUTROPHILS ABSOLUTE AUTO 6.54 K/mm3 (1.96-9.15); NEUTROPHILS PERCENT AUTO 74 % (41-73); Platelet Count 464 K/mm3 (150-400); RDW Coefficient Variation 14.2 % (11.7-14.2); RDW Standard Deviation 47.5 fL (35.1-46.3); Red Blood Cell Count 3.94 M/mm3 (3.80-5.20); White Blood Cell Count 8.88 K/mm3 (4.00-11.30)
--- NOTE | 2020-03-18 04:06 | NUR ---
UPDATE: PLACED PT ON BIPAP DUE TO INCREASED SOB, AND INCREASED WORK OF BREATHING. BIPAP SETTINGS OF 16/8 WITH FIO2 OF 50%, SPO2 @ 95%
[2020-03-18 04:18] LABS: Anion Gap 3 mmol/L (6-16); Blood Urea Nitrogen 7 mg/dL (8-24); CO2, Blood 35 mmol/L (21-32); Calcium, Blood 8.9 mg/dL (8.5-10.1); Chloride, Blood 104 mmol/L (98-108); Creatinine, Blood 0.54 mg/dL (0.40-1.00); Glomerular Filtration Rate >60 (60-); Glucose, Blood 115 mg/dL (70-99); Potassium, Blood 3.2 mmol/L (3.5-5.5); Sodium, Blood 142 mmol/L (136-145)
--- NOTE | 2020-03-18 05:36 | NUR ---
SHIFT SUMMARY: PT CONTINUES TO BE ON BIPAP WITH SETTINGS @ 16/8, WITH FiO2 @ 50%, SPO2 @ 95% PT REMAINS IN SINUS RYTHYM WITH HR IN THE 70'S. VSS. PT HAS BEEN C/O LEFT SHOULDER PAIN FROM PREVIOUS FALL, DECLINED PAIN MEDS. STATES HER PAIN IS RELEVIED BY REPOSITIONING TO RIGHT SIDE. PT HAS BEEN USING BSC, WITH 1 PERSON ASSISTANCE, CONTINENT OF URINE. WILL CONTINUE TO MONITOR PT UNTIL REPORT IS GIVEN TO ONCOMING SHIFT.
--- NOTE | 2020-03-18 07:49 | NUR ---
AM NOTE... ASSUMED CARE OF PT APROX 0700. PT IS A&Ox3 WITH SOME FORGETFULNESS. PT'S VS STABLE AT THIS TIME. PT WAS ON BIPAP AT THE START OF THIS SHIFT, PT WAS TAKEN OFF OF BIPAP TO EAT AND FOR ASSESSMENT. PT WAS PLACED ON 6L NC WITH O2 SATS AT 90%. L/S VERY DIM T/O COARSE CRACKLES NOTED IN THE BASES. BT PRESENT AND NORMOACTIVE ABD SOFT AND NONTENDER TO PALP. PT HAS NONPITTING EDEMA TO HER RIGHT HAND WHERE THE IV IS PRESENT, COBAN WAS WRAPPED AROUND THE AREA, THIS WAS REMOVED, WILL REASSESS NEXT ASSESSMENT. PT IS SBA TO THE BSC AND CHAIR FOR MEALS. PT HAS SWALLOW PRECAUTIONS PER ST. CALL LIGHT IN REACH WILL CONTINUE TO MONITOR.
--- NOTE | 2020-03-18 10:02 | NUR ---
IV PLACEMENT... 20G IV IS NOTED TO THE PT'S LEFT BREAST. IV IS WNL AND FLUSHES WELL, PT DENIES PAIN AT THE SITE.
--- NOTE | 2020-03-18 17:52 | NUR ---
SHIFT SUMMARY... NO ACUTE NEGATIVE CHANGES NOTED THIS SHIFT. PT'S VS HAVE BEEN STABLE T/O SHIFT. PT HAS BEEN TITRATED FROM 7L NC TO 5L NC AND HAS NOT NEEDED TO USE THE BIPAP AT ALL THIS SHIFT. PT HAS BEEN UP IN THE CHAIR FOR MEALS FOLLOWING HER ASPRIATION PRECAUTIONS. PT HAS BEEN SBA TO THE BSC. PT'S FAMILY WAS CALLED AND UPDATE GIVEN. CALL LIGHT IN REACH WILL CONTINUE TO MONITOR UNTIL REPORT IS GIVEN TO ONCOMING RN.
--- NOTE | 2020-03-18 17:53 | NUR ---
Pt sitting in chair upon arrival. Pt very [place] but is A&O. Pt reports having a friend living in a trailer infront of her house that assists with her needs. Attempted to educate Pt on chronic conditions. Pt's understanding is limited due to her hearing. Provided written CHF booklet for Pt to read. Pt expresses appreciation of visit and reports no concerns at this time. Spoke with Bedside RN Anuradha and discussed case. Anuradha reports no concerns at this time. Will F/U with Pt at a later time to answer questions or concerns.
--- NOTE | 2020-03-18 19:00 | NUR ---
Assumed Care Received report from LAKESHA Ling and care was assumed at 1900. VSS. SBP 152. Alert and oriented. Pt is hard of hearing, but is conversing with staff and answering question appropriately. Speaking in full sentences. O2 saturation >93% on 5L via NC. Pt denies CP/pressure, palpitations, SOB, and/or other symptoms at this time. No acute concerns to note at shift start.
[2020-03-19 04:32] LABS: Anion Gap 3 mmol/L (6-16); Blood Urea Nitrogen 10 mg/dL (8-24); Bun/Creatinine Ratio 17.7 (12.0-20.0); CO2, Blood 37 mmol/L (21-32); Calcium, Blood 8.8 mg/dL (8.5-10.1); Chloride, Blood 102 mmol/L (98-108); Creatinine, Blood 0.57 mg/dL (0.40-1.00); Glomerular Filtration Rate >60 (60-); Glucose, Blood 99 mg/dL (70-99); Potassium, Blood 3.2 mmol/L (3.5-5.5); Sodium, Blood 142 mmol/L (136-145)
--- NOTE | 2020-03-19 06:41 | NUR ---
Shift Summary No acute events and/or changes occurred throughout the shift. VSS. SBP 152. O2 saturation >91% on 5L via NC. Pt speaking in full sentences. No changes to mentation noted; pt alert and oriented, conversing with staff and answering questions approproately. Recent labs revealed a potassium of 3.2, and due to scheduled lasix, Dr. Asencio was informed; potassium is infusing per orders. Pt without complaints throughout shift. Denies CP/pressure, palpitations, nausea, vomiting, and/or other symptoms. Pt to bedside commode several times. No changes noted to O2 saturation during activity. SBA. Minimal assistance required. No acute changes and/or concerns this shift. See shift assessment for detailed systems assessment.
--- NOTE | 2020-03-19 07:52 | NUR ---
AM NOTE... ASSUMED CARE OF PT APROX 0700. PT IS A&Ox4 AND SBA IN THE ROOM. PT WAS ADMITTED FOR RESP FAILURE. PT HAS BEEN ON 3-5L NC, 3L AT REST AND UP TO 5L WITH ACTIVITY AND MEALS. NO EDEMA WAS NOTED ON ASSESSMENT. L/S CLEAR AND DIM T/O. BT PRESENT AND NORMOACTIVE ABD SOFT AND NONTENDER TO PALP. PT IS ON ASPRIATION PRECAUTIONS, MEDS CRUSHED IN APPLE SAUCE AND UP FOR 30 MINS AFTER MEALS. PT HAS NOT NEEDED THE BIPAP LAST NIGHT OR THIS AM. CALL LIGHT IN REACH WILL CONTINUE TO MONITOR.
--- NOTE | 2020-03-19 10:33 | NUR ---
PT UPDATE... PT TO TRANSFER TO [facility], REPORT CALLED TO [facility] LAKESHA Centeno ALL OF PT'S BELONGING PACKED AND SENT WITH THE PT. PT'S FAMILY CALLED AND UPDATED ABOUT CHANGE.
--- NOTE | 2020-03-19 11:10 | NUR ---
ASSUMED CARE OF PATIENT UPON HER ARRIVAL FROM PCU. WEARING O2 AT 3 L/MIN NC. STATES PAIN IS WELL CONTROLLED AT THIS TIME. 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 HAS LIMITED MOBILITY IN L SHOULDER D/T INJURY SEVERAL YEARS AGO. HAS WEAK GAIT, NEEDS FWW AND 1 PERSON SBA TO BR; MAY BENEFIT FROM PT/OT.
--- NOTE | 2020-03-19 18:20 | NUR ---
SHIFT SUMMARY: A&O X 3, SEEMS CONFUSED AT TIMES BUT COULD BE FROM HEARING DEFICIT. GETTING UP TO CHAIR/BSC AND DANGLING AT BEDSIDE WITH ASSISTANCE. C/O NECK AND LUE PAIN; MEDICATED WITH TRAMADOL X 1 WITH ADEQUATE RELIEF. GOOD APPETITE, ASPIRATION PRECAUTIONS; CAN FEED SELF WITH SET UP AND SUPERVISION. DENIES N/V/D. ON 3 L/MIN NC AND CONT OXIMETRY WITH O2 SATS > 92%, DAVIES BUT RECOVERS WELL. IS LOOKING FORWARD TO GOING HOME AND SEEING HER DOGS.
--- NOTE | 2020-03-20 00:39 | NUR ---
TOOK OVER CARE OF PT FROM [facility] ([place], [place]). PT LYING IN BED, EYES CLOSED, APPEARS TO BE RESTING .BREATHING IS EVEN, UNLABORED, NO APPARENT SIGNS OF DISTRESS. CALL LIGHT IS IN REACH.
--- NOTE | 2020-03-20 01:33 | NUR ---
PT LYING IN BED, EYES CLOSED, APPEARS TO BE RESTING. BREATHING IS EVEN, UNLABORED. NO APPARENT SIGNS OF DISTRESS. CALL LIGHT IS IN REACH. BED ALARM IS ON.
--- NOTE | 2020-03-20 03:42 | NUR ---
PT LYING IN BED, EYES CLOSED, APPEARS TO BE RESTING. BREATHING IS EVEN, UNLABORED. NO APPARENT SIGNS OF DISTRESS. CALL LIGHT IS IN REACH.
--- NOTE | 2020-03-20 03:42 | NUR ---
PER PREVIOUS RN'S ASSESSMENT, PT IS AAO X 2, ON 3L O2 AT 94%. COCCYX IS REDDENED. WEAKNESS. SCD'S. STILL NEED SPUTUM SAMPLE, CUP ON BEDSIDE TABLE. UNSURE WHERE PAIN IS BUT PT GOT ULTRAM X 2. SCATTERED BRUISES, SWELLING IN L KNEE, SCAB ON FOREHEAD.
--- NOTE | 2020-03-20 05:30 | NUR ---
PT LYING IN BED, EYES CLOSED, WAKES EASILY TO VERBAL STIMULI. NO APPARENT SIGNS OF DISTRESS. CALL LIGHT IS IN REACH. NO OTHER CHANGES THIS SHIFT.
[2020-03-20 06:15] LABS: Anion Gap 4 mmol/L (6-16); Blood Urea Nitrogen 12 mg/dL (8-24); Bun/Creatinine Ratio 20.8 (12.0-20.0); CO2, Blood 35 mmol/L (21-32); Chloride, Blood 102 mmol/L (98-108); Creatinine, Blood 0.58 mg/dL (0.40-1.00); Glomerular Filtration Rate >60 (60-); Glucose, Blood 100 mg/dL (70-99); Potassium, Blood 3.8 mmol/L (3.5-5.5); Sodium, Blood 141 mmol/L (136-145)
--- NOTE | 2020-03-20 16:12 | NUR ---
SUMMARY PT IS A/O X2-3, [employer]. SHE IS PLEASANT/COOPERATIVE, APPEARS FATIGUED. UP w FWW, SBA, SHE IS IMPULSIVE, DOES NOT USE CALL SYSTEM. USING BED ALARM FOR SAFETY, FALL PRECAUTIONS. SHE HAS HX FALL @ HOME, ABRASION TO FOREHEAD, L SHOULDER BRUISING/PAIN. SHE STATE HX NECK, JOINT PAIN D/T ARTHRITIS, HAVE GIVEN ULTRAM & TYLENOL TODAY FOR PAIN RELIEF/CONTROL. DX CHF, PNEUMONIA. IV ANTIBX CONTINUE. LS WERE CLEAR, DECREASED THIS AM, SHE STATE NO COUGH, HAVE NOT BEEN ABLE TO COLLECT SPUTUM SAMPLE. BIOX 96% 2L, CONT BIOX IN PLACE. HRR 60'S. ST SAW HER TODAY, UPGRADE DIET TO MECH SOFT, STATE CONTINUE TO CRUSH MEDS w . VSS.
--- NOTE | 2020-03-20 21:29 | NUR ---
PT RESTING COMFORTABLY IN BED; CHEERFUL; PT VERY HARD OF HEARING; BED ALARM APPLIED FOR SAFETY PT TENDS BE IMPULSIVE WHEN NEEDING UTILIZE BATHROOM.
--- NOTE | 2020-03-21 05:24 | NUR ---
SHIFT SUMMARY: 79 Y/O FEMALE RESTED COMFORTABLY ALL SHIFT; O2 SATS AVERAGED 93% VIA O2 AT 2L/M PER NASAL CANNULA; DENIES PAIN OR NAUSEA; ABLE TO TRANSFER AND AMBULATE VIA WALKER TO BATHROOM AND BACK X 1 STANDBY ASSIST; PT IS VERY HARD OF HEARING; ALERT AND ORIENTED X 2 AND ABLE TO FOLLOW ALL SIMPLE VERBAL COMMANDS; BED ALARM APPLIED, BED LOW POSITION WITH CALL LIGHT AT SIDE.
[2020-03-21 11:54] LABS: International Normalized Ratio 1.07; Prothrombin Time Results 11.4 Sec (9.7-11.5)
[2020-03-21 11:57] LABS: Albumin, Blood 2.8 g/dL (3.4-5.0)
--- NOTE | 2020-03-21 14:29 | NUR ---
Pt in room yelling out that she was never going to get home. Sobbing and crying. long history of depression and panic attacks. pt brething fast and crying and hands getting tight. Sat her up opened blinds and coacher her to slow her breaths. took about 10 minutes and she settled. Reviewd with her the plan to get her home and spoke very slowly and close so she could hear me. pt stressed becuuse she cant hear well and fears that they wont let her go home. read noted in chart to her about having a caregiver. will speak with her caregiver see if she is withdrawing from anything and follow up with her anexiety and pain. Nursing states tylenol works best.
--- NOTE | 2020-03-21 18:34 | NUR ---
PATIENT A/OX3, UP WITH FWW AND SBA TO RESTROOM. VSS 2LO2 TO MAINTAIN SATS, PATIENT DOES NOT USE HOME O2. THORACENTESIS CANCELLED TODAY, RADIOLOGIST FELT THERE WAS NOT ENOUGH FLUID FOR IT TO BE NECESSARY. TOLERATING MS DIET, NO STRAWS. PAIN TO NECK AND LUE, MEDICATING WITH TYLENOL AND TRAMADOL. [facility] AT DISCHARGE. FALL PRECAUTIONS IN PLACE PER UNIT PROTOCOL. PATIENT WILL CALL FOR ASSISTANCE, BUT DOES NOT WAIT FOR STAFF TO GET THERE BEFORE GETTING UP. PATIENT HAD ABOUT A 30 MINUTE EPISODE TODAY OF CRYING AND SCREAMING BECAUSE SHE WANTED TO GO HOME AND SHE WAS BORED. ABLE TO CALM HER DOWN WITH THERAPEUTIC COMMUNICATION.
[2020-03-22 05:04] LABS: BASOPHILS ABSOLUTE AUTO 0.07 K/mm3 (0.00-0.23); BASOPHILS PERCENT AUTO 1 % (0-2); EOSINOPHILS ABSOLUTE AUTO 0.25 K/mm3 (0.00-0.68); EOSINOPHILS PERCENT AUTO 3 % (0-6); Hematocrit 38.4 % (33.0-51.0); Hemoglobin 11.7 g/dL (11.5-16.0); IMMATURE GRAN ABSOLUTE AUTO 0.03 K/mm3 (0.00-0.10); IMMATURE GRAN PERCENT AUTO 0 % (0-1); LYMPHOCYTES ABSOLUTE AUTO 1.26 K/mm3 (0.84-5.20); LYMPHOCYTES PERCENT AUTO 14 % (21-46); MONOCYTES ABSOLUTE AUTO 0.99 K/mm3 (0.16-1.47); MONOCYTES PERCENT AUTO 11 % (4-13); Mean Corpuscular HGB 27.5 pg (26.0-34.0); Mean Corpuscular HGB Conc 30.5 g/dL (31.5-36.5); Mean Corpuscular Volume 90 fL (80-100); Mean Platelet Volume 9.8 fL (9.1-12.4); NEUTROPHILS ABSOLUTE AUTO 6.25 K/mm3 (1.96-9.15); NEUTROPHILS PERCENT AUTO 71 % (41-73); Platelet Count 458 K/mm3 (150-400); RDW Coefficient Variation 14.4 % (11.7-14.2); RDW Standard Deviation 47.3 fL (35.1-46.3); Red Blood Cell Count 4.25 M/mm3 (3.80-5.20); White Blood Cell Count 8.85 K/mm3 (4.00-11.30)
[2020-03-22 05:25] LABS: Anion Gap 3 mmol/L (6-16); Blood Urea Nitrogen 13 mg/dL (8-24); Bun/Creatinine Ratio 22.5 (12.0-20.0); CO2, Blood 36 mmol/L (21-32); Calcium, Blood 9.4 mg/dL (8.5-10.1); Chloride, Blood 102 mmol/L (98-108); Creatinine, Blood 0.58 mg/dL (0.40-1.00); Glomerular Filtration Rate >60 (60-); Glucose, Blood 111 mg/dL (70-99); Potassium, Blood 3.7 mmol/L (3.5-5.5); Sodium, Blood 141 mmol/L (136-145)
--- NOTE | 2020-03-22 07:33 | NUR ---
SHIFT SUMMARY PATIENT SLIGHTLY FORGETFUL OVERNIGHT, WOULD OCCASIONALLY TRY TO GET UP TO THE BATHROOM WITHOUT CALLING FOR HELP. IV PATENT AND FLUSHED BED IN LOWEST POSITION WITH WHEELS LOCKED AND ALARM ON. CALL LIGHT WITHIN REACH. REPORT GIVEN TO ONCOMING RN.
--- NOTE | 2020-03-22 18:49 | NUR ---
SHIFT SUMMARY: NO ACUTE CHANGES TO REPORT THIS SHIFT. PT A&O X2-3; OCC CONFUSION; PT UP TO BATHROOM WITHOUT CALLING; BED & CHAIR ALARMS ON FOR SAFETY. MEDICATED FOR PAIN PER EMAR. 2V CXR PLANNED FOR 03/23. WCMIKHAIL.
--- NOTE | 2020-03-23 07:36 | NUR ---
SHIFT SUMMARY PATIENT SLEPT WELL OVERNIGHT. WOULD FORGET TO USE HER CALL LIGHT BEFORE ATTEMPTING TO AMBULATE TO THE BATHROOM BY HERSELF. IV PATENT AND FLUSHED. BED IN LOWEST POSITION WITH WHEELS LOCKED AND ALARM ON. CALL LIGHT WITHIN REACH. REPORT GIVEN TO ONCOMING RN.
--- NOTE | 2020-03-23 18:41 | NUR ---
SHIFT SUMMARY: NO ACUTE CHANGES TO REPORT THIS SHIFT. PT A&O X2-3 c OCC CONFUSION; CALM AND COOPERATIVE WITH CARE. IMPULSIVE c POOR CALL LIGHT USAGE; BED & CHAIR ALARMS FOR SAFETY. MEDICATED FOR PAIN PER EMAR. IV ABX D/C'd. HOME O2 EVAL PLANNED FOR SATURDAY 03/24. WCTM.
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
--- NOTE | 2020-03-24 13:24 | NUR ---
SUMMARY/DISCHARGE PT STATE CONTINUES TO FEEL IMPROVED, STATE NO SOB @ REST, STATE HOPEFUL TO GO HOME TODAY. DR GUEVARA IN TO SEE HER, ORDER HOME O2 EVAL, PT QUALIFY FOR HOME O2/EVAL. [facility] DELIVER PORTABLE O2. DIRECTOR OF HEALTHCARE SYSTEMS [facility], NOTIFY PT'S CAREGIVER WHO WILL BE IN FOR TRANSPORT HOME. IV D/C INTACT. D/C INSTRUCT REVIEWED. NO NEW SCRIPTS. PT IS PLEASANT/APPRECIATIVE.
--- NOTE | 2020-03-24 17:24 | NUR ---
SET OFF PRESS OPERATOR REPORT PT DECLINE SHOWER OR BED BATH PRIOR TO D/C. ASSISTED PT TO DRESS & GATHER BELONGINGS. AFTER SOME WAIT PT'S CAREGIVER CALLED, STATE CONFUSION R/T WHE SHE WAS SUPPOSED TO ASSISTANT CONSTRUCTION SUPERINTENDENT PT, CLARIFIED. SHE STATE EN-ROUTE TO HOSP. PT ESCORTED VIA W/C TO PARKING AREA, ASSISTED TO CAR. D/C INSTRUCT REVIEWED @ THAT TIME w PT & CAREGIVER.
== END 2020-03-24 16:47 | disposition home health service (06) | DRG 871 ==
LOC: ER 07:13 → PCU 10:57 → MEDS 12:50 → PCU 13:00 → MEDS 03-19 10:56
PROVIDERS: Emergency Medicine; Hospitalist; Pharmacist; ADMIT Internal Medicine
DX: A41.9 Sepsis, unspecified organism (principal); J96.01 Acute respiratory failure with hypoxia; J18.9 Pneumonia, unspecified organism; I50.33 Acute on chronic diastolic (congestive) heart failure; J96.02 Acute respiratory failure with hypercapnia; I47.1 Supraventricular tachycardia; R65.20 Severe sepsis without septic shock; I11.0 Hypertensive heart disease with heart failure; F32.9 Major depressive disorder, single episode, unspecified; Z20.828 Contact with and (suspected) exposure to other viral communicable diseases; E78.5 Hyperlipidemia, unspecified; M19.90 Unspecified osteoarthritis, unspecified site; G89.29 Other chronic pain; E11.9 Type 2 diabetes mellitus without complications; Z79.82 Long term (current) use of aspirin; Z86.73 Personal history of transient ischemic attack (TIA), and cerebral infarction without residual deficits
CPT/HCPCS: 36415; 36600; 71045; 71250; 76604; 80048; 80053; 82040; 82803; 82947; 83605; 83615; 83880; 84145; 84484; 85025; 85610; 87040; 92526; 92610; 93005; 93010; 94640; 94660; 94760; 94762; 96374; 96375; 97110; 97116; 97162; 97530; 99285-25; A9270; J0456; J0696; J1650; J1940; J2543; J3370; J3480; J7042; J7050; U0002; U0003

== ENCOUNTER 2020-07-20 23:36 | Observation (INO) | payer MEDICARE, OTHER ==
[~2020-07-20] VITALS: Ht 157.5 cm; Wt 59.0 kg
[2020-07-21 00:30] LABS: Source, Urine Clean Catch
[2020-07-21 00:33] LABS: BASOPHILS ABSOLUTE AUTO 0.03 K/mm3 (0.00-0.23); BASOPHILS PERCENT AUTO 0 % (0-2); EOSINOPHILS ABSOLUTE AUTO 0.13 K/mm3 (0.00-0.68); EOSINOPHILS PERCENT AUTO 2 % (0-6); IMMATURE GRAN ABSOLUTE AUTO 0.02 K/mm3 (0.00-0.10); IMMATURE GRAN PERCENT AUTO 0 % (0-1); LYMPHOCYTES ABSOLUTE AUTO 1.77 K/mm3 (0.84-5.20); LYMPHOCYTES PERCENT AUTO 23 % (21-46); MONOCYTES ABSOLUTE AUTO 0.96 K/mm3 (0.16-1.47); MONOCYTES PERCENT AUTO 12 % (4-13); Mean Corpuscular HGB 29.5 pg (26.0-34.0); Mean Corpuscular HGB Conc 31.4 g/dL (31.5-36.5); Mean Corpuscular Volume 94 fL (80-100); Mean Platelet Volume 9.5 fL (9.1-12.4); NEUTROPHILS ABSOLUTE AUTO 4.95 K/mm3 (1.96-9.15); NEUTROPHILS PERCENT AUTO 63 % (41-73); Platelet Count 370 K/mm3 (150-400); RDW Coefficient Variation 19.9 % (11.7-14.2); Red Blood Cell Count 3.73 M/mm3 (3.80-5.20); White Blood Cell Count 7.86 K/mm3 (4.00-11.30)
[2020-07-21 00:33] LABS: Bilirubin, Urine Neg (Neg); Blood, Urine Neg (Neg); Glucose Qualitative, Urine Neg (Neg); Ketones, Urine Neg (Neg); Leukocyte Esterase, Urine Neg (Neg); Nitrite, Urine Neg (Neg); Protein, Urine 2+ (Neg); Specific Gravity, Urine 1.015 (1.003-1.022); Urobilinogen, Urine NORM (Normal)
[2020-07-21 00:34] LABS: Appearance, Urine Clear (Clear); Color, Urine Yellow (P-Yellow)
[2020-07-21 00:39] LABS: Amorphous Light (0-Heavy); Bacteria Not Seen /hpf; Hyaline Casts 25-50 /lpf (0-2); Red Blood Cells, Urine Not Seen /hpf (0-2); Squamous Epithelial Cells Not Seen /hpf (Few); White Blood Cells, Urine Not Seen /hpf (0-5)
[2020-07-21 00:51] LABS: Alanine Aminotransfer (ALT/SGP 14 U/L (12-78); Albumin, Blood 3.3 g/dL (3.4-5.0); Alk Phos 48 U/L (50-136); Anion Gap 7 mmol/L (6-16); Aspartate Aminotrans (AST/SGOT 14 U/L (12-37); Bilirubin, Total 0.4 mg/dL (0.1-1.0); Blood Urea Nitrogen 28 mg/dL (8-24); Bun/Creatinine Ratio 33.5 (12.0-20.0); CO2, Blood 27 mmol/L (21-32); CPK Creatine Kinase 35 U/L (26-193); Calcium, Blood 8.9 mg/dL (8.5-10.1); Chloride, Blood 109 mmol/L (98-108); Creatinine, Blood 0.84 mg/dL (0.40-1.00); Globulin, Blood 3.2 g/dL (2.2-4.0); Glomerular Filtration Rate >60 (60-); Glucose, Blood 121 mg/dL (70-99); Potassium, Blood 4.4 mmol/L (3.5-5.5); Sodium, Blood 143 mmol/L (136-145); Total Protein, Blood 6.5 g/dL (6.4-8.2)
[2020-07-21 05:44] LABS: BASOPHILS ABSOLUTE AUTO 0.08 K/mm3 (0.00-0.23); BASOPHILS PERCENT AUTO 1 % (0-2); EOSINOPHILS ABSOLUTE AUTO 0.17 K/mm3 (0.00-0.68); EOSINOPHILS PERCENT AUTO 2 % (0-6); IMMATURE GRAN ABSOLUTE AUTO 0.01 K/mm3 (0.00-0.10); IMMATURE GRAN PERCENT AUTO 0 % (0-1); LYMPHOCYTES ABSOLUTE AUTO 2.39 K/mm3 (0.84-5.20); LYMPHOCYTES PERCENT AUTO 30 % (21-46); MONOCYTES PERCENT AUTO 14 % (4-13); Mean Corpuscular HGB 29.6 pg (26.0-34.0); Mean Corpuscular HGB Conc 31.4 g/dL (31.5-36.5); Mean Corpuscular Volume 94 fL (80-100); Mean Platelet Volume 9.1 fL (9.1-12.4); NEUTROPHILS PERCENT AUTO 53 % (41-73); Platelet Count 369 K/mm3 (150-400); RDW Coefficient Variation 19.9 % (11.7-14.2); RDW Standard Deviation 69.6 fL (35.1-46.3); Red Blood Cell Count 3.71 M/mm3 (3.80-5.20); White Blood Cell Count 8.05 K/mm3 (4.00-11.30)
[2020-07-21 06:05] LABS: Alanine Aminotransfer (ALT/SGP 14 U/L (12-78); Albumin, Blood 3.4 g/dL (3.4-5.0); Albumin/Globulin Ratio 0.9 (0.8-1.8); Alk Phos 50 U/L (50-136); Anion Gap 4 mmol/L (6-16); Aspartate Aminotrans (AST/SGOT 15 U/L (12-37); Bilirubin, Total 0.4 mg/dL (0.1-1.0); Blood Urea Nitrogen 22 mg/dL (8-24); Bun/Creatinine Ratio 32.1 (12.0-20.0); CO2, Blood 29 mmol/L (21-32); Calcium, Blood 9.3 mg/dL (8.5-10.1); Chloride, Blood 108 mmol/L (98-108); Creatinine, Blood 0.69 mg/dL (0.40-1.00); Globulin, Blood 3.7 g/dL (2.2-4.0); Glomerular Filtration Rate >60 (60-); Glucose, Blood 126 mg/dL (70-99); Potassium, Blood 4.5 mmol/L (3.5-5.5); Sodium, Blood 141 mmol/L (136-145); Total Protein, Blood 7.1 g/dL (6.4-8.2)
[2020-07-21] MEDS ORDERED: ATEN100 PO (12:30)
[2020-07-21] MEDS ORDERED: NORCO 7.5-3251 EAC3 PO (12:31)
[2020-07-21] MEDS ORDERED: OMEP20ER PO (14:41)
--- NOTE | 2020-07-21 14:54 | NUR ---
ARRIVES TO THE FLOOR ABOUT 1350 VIA CART. C/O PAIN TO LOWER EXT WHEN MOVING. LUNGS DIM T/O . IV RT HAND INFUSING NACL WITHOUT DIFFICULTY. ALERT. ORIENTED TO; PLACE, EVENT, SELF. DOES NOT KNOW DATE. EXTREMELY [place]. WHEN ANSWERS QUESTION WRONG IF REPEATED LOUDER WILL ANSWER CORRECTLY. SOME MEMORY LOSS. HAS "DEAR FRIEND" WHO STAYS WITH HER MOST OF DAY--DOES NOT SLEEP THERE- AND ASSISTS W/ADL'S, COOKING, AND CLEANING. ONE PERSON STANDBY ASSIST TO BSC.REMINDED TO USE CALL LIGHT, BUT DOES NOT ALWAYS. HAS NOT C/O PAIN SINCE INITIAL MOVING TO MED FLOOR BED. ON OXYGEN 2 LPM BASELINE. MEDS RECONCILLED AFTER RECEIVING MED LIST FROM; PHARM AND PCP. PATIENT LYING DOWN WITH MUSIC ON. WCTM.
--- NOTE | 2020-07-22 04:07 | NUR ---
SHIFT SUMMARY ADMITTED FOR DEMENTIA/PAINFUL LEGS, SHE HAD A RECENT FALL AT HOME. FULL CODE. SHE IS SEVERELY [place]. SHE IS FORGETFUL BUT COOPERATIVE WITH CARE. SHE HAS PAINFUL ARTHRITIS IN MANY OF HER JOINTS. XRAYS WERE PERFORMED TO LOOK FOR POSSIBLE FRACTURES. I'M TOLD THAT SHE DOES LIVE IN HER OWN HOME, BUT A CAREGIVER LIVES ON HER PROPERTY. LAST NIGHT SHE SEEMED TOO WEAK AND PAINFUL TO GET TO THE BSC, SO WE USED A BEDPAN.
--- NOTE | 2020-07-22 18:11 | NUR ---
ALERT TO SELF, WHERE SHE IS AT AND WHY SHE CAME IN. SIGNED CONSENT FOR STAFF TO TALK TO CAREGIVER, MIKE. PATIENT WISHES TO GO HOME WITH CAREGIVER. PATIENT DOES NOT HAVE ANY CHILDREN OR ANY RELATIVES. FRAN AND LYNETTE ON CHART WERE PATIENT FOSTER CARE SIBLINGS AND SHE IS UNSURE WHERE THEY ARE. STS HAS A SISTER IN [place] WHO SHE HAS NOT SEEN IN YEARS SO IS UNSURE IF SHE IS ALIVE. MEDICATED FOR PAIN, BUT PATIENTS EXPECTATIONS OF PAIN RELIEF ARE UNREALISTIC SHE WANTS TO BE PAIN FREE. ARTHRITIS T/O BODY. WCTM
--- NOTE | 2020-07-23 05:21 | NUR ---
SHIFT SUMMARY PATIENT ANSWERS MOST QUESTIONS APPROPRIATELY, SEEMS ALERT AND ORIENTED. IV PATENT AND FLUSHED. BED IN LOWEST POSITION WITH WHEELS LOCKED AND ALARM ON. CALL LIGHT WITHIN REACH . REPORT GIVEN TO ONCOMING RN.
[2020-07-23 05:54] LABS: Albumin, Blood 3.2 g/dL (3.4-5.0); Anion Gap 7 mmol/L (6-16); Blood Urea Nitrogen 19 mg/dL (8-24); Bun/Creatinine Ratio 33.7 (12.0-20.0); CO2, Blood 28 mmol/L (21-32); Calcium, Blood 9.2 mg/dL (8.5-10.1); Chloride, Blood 105 mmol/L (98-108); Creatinine, Blood 0.56 mg/dL (0.40-1.00); Glomerular Filtration Rate >60 (60-); Glucose, Blood 108 mg/dL (70-99); Phosphorus, Blood 2.9 mg/dL (2.5-4.9); Potassium, Blood 4.2 mmol/L (3.5-5.5); Sodium, Blood 140 mmol/L (136-145)
[2020-07-23] MEDS ORDERED: AZIT500 PO (17:00)
[2020-07-23] MEDS ORDERED: LIDO700A20 TOP (17:01)
[2020-07-23] MEDS ORDERED: MELATONIN5 M1 PO (17:02)
[2020-07-23] MEDS ORDERED: ACIDOPHILUS1 EAC3 PO (17:05)
[2020-07-23] MEDS ORDERED: CEFU500T30 PO (17:05)
--- NOTE | 2020-07-23 18:49 | NUR ---
PT AOX2 ALL PAPER WORK REVIEWED AN EDUCATIONAL MATERIAL SENT WITH PT. PT TWO PERSON ASSIST TO BEDSIDE COMODE SHE WILL JUST SIT DOWN AT TIMES. PT TREATED FOR L HIP AND L SHOULDER PAIN PER EMAR X2 NO DISTRESS NOTED. PT ESCORTED VIA WHEEL CHAIR BY AID. SECOND BALLER TO TRANSPORT HOME.
== END 2020-07-23 18:45 | disposition home health service (06) ==
LOC: ER 23:36 → ERHOLD 23:37 → MEDS 07-21 13:43
PROVIDERS: Emergency Medicine; Internal Medicine; ADMIT Internal Medicine
DX: M19.012 Primary osteoarthritis, left shoulder (principal); M17.12 Unilateral primary osteoarthritis, left knee; F03.90 Unspecified dementia, unspecified severity, without behavioral disturbance, psychotic disturbance, mood disturbance, and anxiety; F05 Delirium due to known physiological condition; E86.0 Dehydration; F41.9 Anxiety disorder, unspecified; F32.9 Major depressive disorder, single episode, unspecified; I11.0 Hypertensive heart disease with heart failure; I50.32 Chronic diastolic (congestive) heart failure; G89.4 Chronic pain syndrome; F11.20 Opioid dependence, uncomplicated; R25.2 Cramp and spasm; E78.5 Hyperlipidemia, unspecified; M54.9 Dorsalgia, unspecified; E11.9 Type 2 diabetes mellitus without complications; R91.8 Other nonspecific abnormal finding of lung field; H91.90 Unspecified hearing loss, unspecified ear; J96.11 Chronic respiratory failure with hypoxia; G47.00 Insomnia, unspecified; Z91.041 Radiographic dye allergy status; Z79.82 Long term (current) use of aspirin; Z79.2 Long term (current) use of antibiotics; Z79.899 Other long term (current) drug therapy; Z90.49 Acquired absence of other specified parts of digestive tract; Z99.81 Dependence on supplemental oxygen; Z23 Encounter for immunization; W19.XXXA Unspecified fall, initial encounter; Y92.019 Unspecified place in single-family (private) house as the place of occurrence of the external cause
CPT/HCPCS: 36415; 71045; 72170; 73030; 73552; 73562-LT; 80053; 80069; 81001; 82550; 84145; 85025; 96361; 96365; 96366; 96372; 96372-59; 96375; 97162; 97166; 97530; 99285-25; G0378; J0696; J1650; J2405; J3010; J7030; J7050; Q2038

== ENCOUNTER 2022-02-28 09:55 | Inpatient (IN) | payer OTHER ==
[~2022-02-28] VITALS: Ht 157.5 cm; Wt 58.4 kg
[~2022-02-28 09:55] MED LIST changes: +ACIDOPHILUS1 EAC3 PO; +AZIT500 PO; +CEFU500T30 PO; +LIDO700A20 TOP; +MELATONIN5 M1 PO; +NORCO 7.5-3251 EAC3 PO
[2022-02-28] MEDS ORDERED: HYDROCODONE-AC1 EAC7 PO (11:07)
[2022-02-28] MEDS ORDERED: Oxybutynin Chlor5 M1 PO (11:08)
[2022-02-28] MEDS ORDERED: ESCI20 PO (11:08)
[2022-02-28] MEDS ORDERED: KLOR-CON 1010 ME1 PO (11:12)
[2022-02-28 11:21] LABS: BASOPHILS ABSOLUTE AUTO 0.08 K/mm3 (0.00-0.23); BASOPHILS PERCENT AUTO 1 % (0-2); EOSINOPHILS ABSOLUTE AUTO 0.09 K/mm3 (0.00-0.68); EOSINOPHILS PERCENT AUTO 1 % (0-6); Hematocrit 36.8 % (33.0-51.0); IMMATURE GRAN ABSOLUTE AUTO 0.02 K/mm3 (0.00-0.10); IMMATURE GRAN PERCENT AUTO 0 % (0-1); LYMPHOCYTES ABSOLUTE AUTO 0.77 K/mm3 (0.84-5.20); LYMPHOCYTES PERCENT AUTO 9 % (21-46); MONOCYTES ABSOLUTE AUTO 0.68 K/mm3 (0.16-1.47); MONOCYTES PERCENT AUTO 8 % (4-13); Mean Corpuscular HGB 22.8 pg (26.0-34.0); Mean Corpuscular HGB Conc 29.9 g/dL (31.5-36.5); Mean Corpuscular Volume 76 fL (80-100); Mean Platelet Volume 9.7 fL (9.1-12.4); NEUTROPHILS ABSOLUTE AUTO 7.02 K/mm3 (1.96-9.15); NEUTROPHILS PERCENT AUTO 81 % (41-73); Platelet Count 549 K/mm3 (150-400); RDW Coefficient Variation 17.9 % (11.7-14.2); RDW Standard Deviation 49.4 fL (35.1-46.3); Red Blood Cell Count 4.83 M/mm3 (3.80-5.20); White Blood Cell Count 8.66 K/mm3 (4.00-11.30)
[2022-02-28 11:26] LABS: Base Excess Venous 3.3 mmol/L; Bicarbonate Venous 27.7 mmol/L (24.0-30.0); PCO2 Venous 30.6 mmHg (38-42); PO2 Venous 162 mmHg (38-42); pH Blood Venous 7.54 (7.34-7.37)
[2022-02-28 11:28] LABS: Influenza A, PCR NEGATIVE (NEGATIVE); Influenza B, PCR NEGATIVE (NEGATIVE); Resp Syncytial Virus, PCR NEGATIVE (NEGATIVE); SARS-Cov-2 (COVID-19) PCR, MMC NEGATIVE (NEGATIVE)
[2022-02-28 11:50] LABS: Albumin, Blood 3.1 g/dL (3.4-5.0); Albumin/Globulin Ratio 0.7 (0.8-1.8); Bilirubin, Total 0.3 mg/dL (0.1-1.0); Bun/Creatinine Ratio 23.8 (12.0-20.0); Calcium, Blood 8.5 mg/dL (8.5-10.1); Creatinine, Blood 0.51 mg/dL (0.40-1.00); Globulin, Blood 4.3 g/dL (2.2-4.0); Potassium, Blood 4.5 mmol/L (3.5-5.5); Total Protein, Blood 7.4 g/dL (6.4-8.2)
[2022-02-28 12:30] LABS: Source, Urine Foley catheter
[2022-02-28 12:35] LABS: Appearance, Urine Hazy (Clear); Bilirubin, Urine Neg (Neg); Color, Urine Yellow (P-Yellow); Glucose Qualitative, Urine Neg (Neg); Ketones, Urine Neg (Neg); Nitrite, Urine Neg (Neg); Urobilinogen, Urine NORM (Normal)
[2022-02-28 12:51] LABS: Bacteria Many /hpf; Squamous Epithelial Cells Not Seen /hpf (Few)
[2022-02-28 13:08] LABS: Blood, Urine 1+ (Neg); Leukocyte Esterase, Urine 1+ (Neg); Protein, Urine 3+ (Neg)
--- NOTE | 2022-02-28 16:48 | NUR ---
ADMIT TO PCU: PATIENT ALERT AND ORIENTED X2-3. VERY HARD OF HEARING, AT TIMES HARD TO COMMUNICATE. AWARE OF SITUATION. ANXIOUS TO GO BACK HOME. PERRLA. CONTRACTURES IN UPPER EXTREMITIES. DIFFICULT TO LAY FLAT. RIGHT SHOULDER WORSE THAN LEFT. LIMITED ROM IN BILATERAL UPPER EXTREMITIES. DENIES NUMBNESS/TINGLING. ON 4L BASELINE O2 SATING LOW 90'S. BIPAP ON STANDBY AT BEDSIDE. LUNGS SOUNDING DIMINISHED. OCCASIONAL WET COUGH. TELE SHOWING SINUS RHYTHM WITH HR 60-70'S. DENIES CHEST PAIN/PRESSURE. NO SIGNS OF EDEMA. BP STABLE. DDIMER ELEVATED. PLAN FOR CT PE STUDY. NPO AT THIS TIME. DENIES ABDOMINAL PAIN/NAUSEA. PLAN FOR SPEECH EVAL IN AM. SUCTION AT BEDSIDE. INCONTINENT OF BOWEL. FIELD CATH IN PLACE DRAINING TO GRAVITY. SKIN OVERALL FRAGILE. SKIN TEAR TO RIGHT FA. POWERGLIDE TO PATRICE. PERIPHERAL IV TO RIGHT HAND. SPOKE WITH CAREGIVER MIKE ALONZO ([phone]) FOR MED REC AND HISTORY INFORMATION WITH PATIENT PERMISSION. MED REC COMPLETED. MIKE STATES PATIENT USED TO BE ON LASIX DOSE THAT IS PRESENT IN MED REC BUT HAS NOT RECENTLY BEEN TAKING IT AND THINKS IT GOT MISSED WHEN SWITCHING PHARMACIES. CALL LIGHT IN REACH. Q6 BLOOD SUGARS. WILL CONTINUE TO MONITOR AND REPORT OFF TO ONCOMING RN.
--- NOTE | 2022-02-28 18:38 | NUR ---
SHIFT SUMMARY: REFER TO PREVIOUS NOTE FOR UPDATES. PATIENT REMAINS STABLE. NO ACUTE CHANGES. REMAINS ON 4L NASAL CANNULA. TELE REMAINS UNCHANGED. Q2 TURNING AND NEEDED. CT PE STUDY COMPLETED, SEE RESULTS. CALL LIGHT IN REACH. NPO AT THIS TIME. CBG Q6. DENIES NEEDS. WILL CONTINUE TO MONITOR AND REPORT OFF.
--- NOTE | 2022-02-28 21:00 | NUR ---
CP/PHYSICIAN UPDATE PT REPORTS CHEST PAIN THAT RADIATES UP TO L NECK. EKG DONE, READS NORMAL SINUS RHYTHM. MEDICATED PER EMAR FOR PAIN. PHYSICIAN UPDATED ON PT PAIN, TROPONIN WNL, EKG WNL, PT REPORTS PAIN IS MORE SEVERE WITH DEEP INSPIRATION. NO NEW ORDERS. WILL CONT TO MONITOR.
[2022-03-01 03:45] LABS: Base Excess Venous 6.3 mmol/L; Bicarbonate Venous 29.1 mmol/L (24.0-30.0); PCO2 Venous 53.7 mmHg (38-42); PO2 Venous 50.8 mmHg (38-42); pH Blood Venous 7.38 (7.34-7.37)
[2022-03-01 03:45] LABS: BASOPHILS ABSOLUTE AUTO 0.02 K/mm3 (0.00-0.23); BASOPHILS PERCENT AUTO 0 % (0-2); EOSINOPHILS PERCENT AUTO 0 % (0-6); Hematocrit 30.7 % (33.0-51.0); Hemoglobin 9.3 g/dL (11.5-16.0); IMMATURE GRAN ABSOLUTE AUTO 0.02 K/mm3 (0.00-0.10); IMMATURE GRAN PERCENT AUTO 0 % (0-1); LYMPHOCYTES ABSOLUTE AUTO 0.75 K/mm3 (0.84-5.20); LYMPHOCYTES PERCENT AUTO 11 % (21-46); MONOCYTES ABSOLUTE AUTO 0.54 K/mm3 (0.16-1.47); MONOCYTES PERCENT AUTO 8 % (4-13); Mean Corpuscular HGB 22.9 pg (26.0-34.0); Mean Corpuscular HGB Conc 30.3 g/dL (31.5-36.5); Mean Corpuscular Volume 76 fL (80-100); Mean Platelet Volume 9.9 fL (9.1-12.4); NEUTROPHILS ABSOLUTE AUTO 5.48 K/mm3 (1.96-9.15); NEUTROPHILS PERCENT AUTO 81 % (41-73); Platelet Count 452 K/mm3 (150-400); RDW Coefficient Variation 17.7 % (11.7-14.2); RDW Standard Deviation 48.7 fL (35.1-46.3); Red Blood Cell Count 4.06 M/mm3 (3.80-5.20); White Blood Cell Count 6.81 K/mm3 (4.00-11.30)
[2022-03-01 04:04] LABS: Albumin, Blood 2.6 g/dL (3.4-5.0); Albumin/Globulin Ratio 0.8 (0.8-1.8); Bilirubin, Total 0.3 mg/dL (0.1-1.0); Bun/Creatinine Ratio 27.6 (12.0-20.0); Calcium, Blood 7.7 mg/dL (8.5-10.1); Creatinine, Blood 0.58 mg/dL (0.40-1.00); Globulin, Blood 3.4 g/dL (2.2-4.0); Potassium, Blood 4.4 mmol/L (3.5-5.5)
--- NOTE | 2022-03-01 05:00 | NUR ---
SHIFT SUMMARY PT ALERT AND ORIENTED BUT AT TIMES IS CONFUSED AND DISORIENTED. PT HAS HX OF DEMENTIA. VSS; SB W/HR MID TO HIGH 50'S. PT ON CPAP W/5L BLEED IN, O2 SATS >95%. PT WORE CPAP THROUGHOUT THE NIGHT. EARLIER IN THE DAY, PT WAS ON 6 L NC HOWEVER O2 SATS DROPPED TO 80'S, CPAP WAS PLACED AND PT WAS ABLE TO RECOVER WELL. PT HAS OCCASSIONAL WET COUGH AND OCCASSIONALLY PRODUCES SMALL AMOUNTS OF THICK, CLEAR SPUTUM. PT HAS BEEN NPO THROUGHOUT SHIFT. ORAL CARE COMPLETED. PT COMPLAINS OF R ARM PAIN AND NECK PAIN. HX OF OSTEOARTHRITIS AND CHRONIC PAIN. MEDICATED PER EMAR. PT REPORTS CHEST PAIN "WITH RADIATING PAIN TO JAW". EKG COMPLETED, SHOWS SR WITH NO CHANGES. PROVIDER NOTIFIED; SEE NURING NOTE. PT REPOSITIONED Q2 THROUGHOUT SHIFT. TOLERATED FAIRLY. POWERGLIDE IN L UPPERARM; FLUSHES AND DRAWS WELL. FIELD CATHETER IN PLACE AND DRAINING TO GRAVITY. PT RESTED THROUGHOUT NIGHT. CALL LIGHT WITHIN REACH AND BED IN LOWEST POSITION
[2022-03-01 07:40] LABS: Percent Saturation 5.7 % (15.0-50.0)
--- NOTE | 2022-03-01 12:23 | NUR ---
UPDATE REPORT GIVEN TO ARTUR CROWDER TO ASSUME CARE
--- NOTE | 2022-03-01 16:58 | NUR ---
END OF SHIFT: PATIENT HAS BEEN INBETWEEN BIPAP AND NC, HAS BEEN REPOSITIONED OFTERN LESS THAN 1.5 HOUR PER REPOSITION. PATIENT HAS DENIED PAIN MOST OF THE DAY, UNTIL THIS EVENING, CALL PLACED TO HOSPITALIST, AND PAIN MANAGEMENT MEDICATIONS THAT WERE MORE APPROPRIATE WERE ORDERED, ADDITIONALLY, PROVENTAL TREATMENTS ALSO ORDERED BY HOSPITALIST PATIENT FEELS MINIMALLY SOB. DENIES CHEST PAIN OR PRESSURE. TOLERATES BIPAP WITH BREAKS OCCASSIONALLY. ABD US TODAY PLEASE SEE REPORT. WILL CONTINUE TO MONITOR.
--- NOTE | 2022-03-02 05:28 | NUR ---
SHIFT SUMMARY ASSUMED CARE AT 1900. PT UP IN BED, ALERT AND ORIENTED. VSS; SR, SB W/HR 50'S - 60'S. CURRENTLY ON 3 L WITH O2 SATS >95%. DURING SHIFT, O2 SATS DROPPED, STUDENT NURSE INCREASED O2 TO 4 L. O2 SATS INCREASED AND REMAINED >95%. PT DENIES CHEST PAIN OR CHEST PRESSURE. DENIES SOB, NO RESPIRATORY DISTRESS NOTED HOWEVER DURING EXERTION O2 SATS SLIGHTLY DECREASED. PT RECOVERED WELL. AT BEGINNING OF SHIFT CATHETER CARE, ORAL CARE AND REPOSITIONING COMPLETED. PT HAD SMALL BM. PT RESTED AND SLEPT WELL THROUGHOUT THE NIGHT. NO ACUTE CHANGES. CALL LIGHT WITHIN REACH AND BED IN LOWEST POSITION.
[2022-03-02 05:47] LABS: BASOPHILS ABSOLUTE AUTO 0.04 K/mm3 (0.00-0.23); BASOPHILS PERCENT AUTO 1 % (0-2); EOSINOPHILS ABSOLUTE AUTO 0.12 K/mm3 (0.00-0.68); EOSINOPHILS PERCENT AUTO 2 % (0-6); Hematocrit 30.8 % (33.0-51.0); Hemoglobin 9.4 g/dL (11.5-16.0); IMMATURE GRAN ABSOLUTE AUTO 0.02 K/mm3 (0.00-0.10); IMMATURE GRAN PERCENT AUTO 0 % (0-1); LYMPHOCYTES ABSOLUTE AUTO 1.64 K/mm3 (0.84-5.20); LYMPHOCYTES PERCENT AUTO 23 % (21-46); MONOCYTES ABSOLUTE AUTO 0.86 K/mm3 (0.16-1.47); MONOCYTES PERCENT AUTO 12 % (4-13); Mean Corpuscular HGB 22.9 pg (26.0-34.0); Mean Corpuscular HGB Conc 30.5 g/dL (31.5-36.5); Mean Corpuscular Volume 75 fL (80-100); Mean Platelet Volume 10.4 fL (9.1-12.4); NEUTROPHILS ABSOLUTE AUTO 4.58 K/mm3 (1.96-9.15); NEUTROPHILS PERCENT AUTO 63 % (41-73); Platelet Count 426 K/mm3 (150-400); RDW Coefficient Variation 17.8 % (11.7-14.2); RDW Standard Deviation 48.4 fL (35.1-46.3); White Blood Cell Count 7.26 K/mm3 (4.00-11.30)
--- NOTE | 2022-03-02 06:06 | NUR ---
I have reviewed [employer] documentation and agree with findings.
--- NOTE | 2022-03-02 08:20 | NUR ---
AM ASSESSMENT: Pt laying in bed. Contractures to upper extrimities, pt very stiff. Generalized weakness. Pt states that she is weak at home as well. Unable to explain if she is able to ambulate or not. Pt does state that she has a neighbor/caregiver who helps her. Pt oriented to self and place. Does not know date/time. LS diminished with barking, non-productive cough. HR reg. Pt positive, abd slightly distended. Pulses palp. PERRL. Powerglide to PATRICE flushes without issues. Beatty cath draining clear, yellow urine. Bed alarm on. Call light in reach. Will continue to monitor.
[2022-03-02 08:22] LABS: Bun/Creatinine Ratio 27.6 (12.0-20.0); Calcium, Blood 7.9 mg/dL (8.5-10.1); Creatinine, Blood 0.62 mg/dL (0.40-1.00); Potassium, Blood 3.6 mmol/L (3.5-5.5)
--- NOTE | 2022-03-02 10:08 | NUR ---
Beatty cath discontinued. Attends in place.
[2022-03-02] MEDS ORDERED: FERSU300 PO (12:45)
[2022-03-02] MEDS ORDERED: ALBU2.5V5 INH (12:47)
--- NOTE | 2022-03-02 15:31 | NUR ---
discharge: Pt discharged to home. Left via ambulance/gurney. Caregiver Aneta was called and given discharge instructions over the phone. Denied questions and verbalized understanding. Rx were faxed to [facility] in [place]. Powerglide was discontinued and cath intact. Patient stable at time of discharge.
== END 2022-03-02 15:26 | disposition home health service (06) | DRG 291 ==
LOC: ER 09:55 → PCU 14:39
PROVIDERS: Emergency Medicine; Student in an Organized Health Care Education/Training Program; ADMIT Hospitalist
PROC: 5A09357 Assistance with Respiratory Ventilation, Less than 24 Consecutive Hours, Continuous Positive Airway Pressure (ICD-10-PCS; principal; 2022-03-01)
DX: I11.0 Hypertensive heart disease with heart failure (principal); J96.01 Acute respiratory failure with hypoxia; I50.33 Acute on chronic diastolic (congestive) heart failure; I47.1 Supraventricular tachycardia; F03.90 Unspecified dementia, unspecified severity, without behavioral disturbance, psychotic disturbance, mood disturbance, and anxiety; G89.29 Other chronic pain; R10.11 Right upper quadrant pain; E11.9 Type 2 diabetes mellitus without complications; E87.70 Fluid overload, unspecified; E78.5 Hyperlipidemia, unspecified; M19.90 Unspecified osteoarthritis, unspecified site; M54.9 Dorsalgia, unspecified; J44.9 Chronic obstructive pulmonary disease, unspecified; Z51.5 Encounter for palliative care; F32.A Depression, unspecified; F41.0 Panic disorder [episodic paroxysmal anxiety]; Z20.822 Contact with and (suspected) exposure to COVID-19; Z90.49 Acquired absence of other specified parts of digestive tract; Z98.890 Other specified postprocedural states; Z79.82 Long term (current) use of aspirin; Z79.01 Long term (current) use of anticoagulants; Z79.899 Other long term (current) drug therapy
CPT/HCPCS: 0241U; 51702; 71045; 71260; 76705; 80048; 80053; 81001; 82728; 82803; 82947; 83540; 83550; 83605; 83880; 84145; 84484; 85025; 85379; 87086; 92526; 92610; 93005; 93010; 93306; 94640; 94644; 94660; 94664; 94761; 94762; 96372; 96374-59; 96375; 96375-59; 96376; 97166; 97530; 99285-25; A9270; C1751; G0378; J0696; J1100; J1170; J1650; J1940; Q9967